=== PATIENT | male | born 1940 | race Caucasian/White ===

== ENCOUNTER 2017-06-20 08:54 | Day surgery (SDC) | payer MEDICARE, OTHER ==
[2017-06-17 14:49] VITALS: BMI 36.3
[~2017-06-20 08:54] MED LIST: ALPRAZolam 0.25 MG TAB PO PRN; ALPRAZolam 0.5 MG TAB PO PRN; ASPIRIN 325 MG TAB PO STA; ATORVASTATIN 80 MG TAB PO STA; NITROGLYCERIN SL TABS 0.4 MG TAB SUBLINGUAL PRN; SODIUM CHLORIDE 0.9% 1,000 ML in EMPTY BAG 1 BAG IV ONE
[2017-06-20 09:40] VITALS: PULSE 77; TEMP 98.1
[2017-06-20] MEDS ORDERED: MIDAZOLAM 2 MG/2 ML VIAL IVP ONE (10:15)
[2017-06-20] MEDS ORDERED: LIDOCAINE 2% INJ 20 MG/ML SQ ONE (10:25)
[2017-06-20] MEDS ORDERED: IODIXANOL 320 MG/ML 100 ML INTRAARTER ONE (11:15)
--- NOTE | 2017-06-20 14:21 | CC ---
DATE OF SERVICE: 06/20/17 PERFORMING PHYSICIAN: Kirk Gamboa M.D., service trainer. PROCEDURE PERFORMED: 1. Selective left and right coronary angiogram. 2. Left internal mammary artery angiogram. 3. SVG angiogram times two. 4. Selective right common femoral artery angiogram. INDICATIONS: This is a pleasant 76 year old gentleman who was experiencing exertional dyspnea. He is known to have coronary artery bypass grafting times three with MARTINEZ to LAD, SVG to OM and SVG to RCA. He underwent stress test which showed ischemia in the septal area. He was brought today to undergo heart catheterization. APPROACH: Right common femoral artery. COMPLICATIONS: None. LEVEL OF SEDATION: Moderate. SEDATION LENGTH: 48 minutes. PROCEDURE DESCRIPTION: After obtaining informed consent, the patient was brought to the cardiac refuse laborer. The right common femoral artery was cannulated using micropuncture technique. The micropuncture wire passed easily. Then, I placed a 6 Telugu sheath in the right radial artery. I did place after that 23 cm sheath to bypass the tortuosity in the aorta iliac area. After that, I did selective right and left coronary angiogram using JR4 and JL4 catheters. I did after that SVG angiogram times two with SVG to the RCA was performed using Darwin Mondragon catheter and SVG to OM was performed using JR4 catheter. The left internal mammary artery angiogram was performed using an IM catheter. The procedure was completed without any complications. SELECTIVE CORONARY ANGIOGRAM: 1. The left main is angiographically normal. 2. The left circumflex is 100% occluded in the proximal portion. 3. The left anterior descending artery: The proximal LAD appeared to have a tight lesion in the range of 80%. The mid LAD seems to be subtotally occluded with competitive flow from the MARTINEZ. 4. The RCA is 100% occluded in the mid portion. CORONARY BYPASS ANGIOGRAM: 1. The MARTINEZ to LAD is patent. 2. SVG to left circumflex is patent. 3. SVG to RCA is patent as well. CONCLUSIONS: 1. Severe triple vessel coronary artery disease. 2. Patent MARTINEZ to LAD. 3. Patent SVG to left circumflex. 4. Patent SVG to RCA. POSTPROCEDURE MANAGEMENT: 1. Maximize medical treatment. 2. Follow up with the patient. AMANDA
[2017-06-20 18:02] VITALS: BP 115/70; RESP 20
[2017-06-23] MEDS ORDERED: SODIUM CHLORIDE 0.9% 1,000 ML IV SCH (11:30)
== END 2017-06-20 17:33 | disposition home or self-care (01) ==
LOC: CATHCVL 08:54
PROVIDERS: ATTEND Internal Medicine Interventional Cardiology
DX: I25.110 Atherosclerotic heart disease of native coronary artery with unstable angina pectoris (principal); I25.82 Chronic total occlusion of coronary artery; R94.39 Abnormal result of other cardiovascular function study; I10 Essential (primary) hypertension; E78.5 Hyperlipidemia, unspecified; Z95.1 Presence of aortocoronary bypass graft; J44.9 Chronic obstructive pulmonary disease, unspecified; Z79.02 Long term (current) use of antithrombotics/antiplatelets; Z79.82 Long term (current) use of aspirin; Z79.891 Long term (current) use of opiate analgesic; Z79.899 Other long term (current) drug therapy; Z79.1 Long term (current) use of non-steroidal anti-inflammatories (NSAID); Z87.891 Personal history of nicotine dependence
CPT/HCPCS: 93455; 99152; 99153; C1760; C1769 ×4; C1894 ×3; J2001; J2250; Q9967

== ENCOUNTER 2019-09-22 10:47 | Day surgery (SDC) | payer MEDICARE, OTHER ==
[2019-09-21 08:47] VITALS: BMI 37.2
[~2019-09-22 10:47] MED LIST changes: -ALPRAZolam 0.5 MG TAB PO PRN; +ASPIRIN 325 MG TAB PO ONE; -ASPIRIN 325 MG TAB PO STA; -ATORVASTATIN 80 MG TAB PO STA; -NITROGLYCERIN SL TABS 0.4 MG TAB SUBLINGUAL PRN
[2019-09-22] MEDS ORDERED: ASPIRIN 81 MG ONE (11:31)
[2019-09-22] MEDS ORDERED: SODIUM CHLORIDE 0.9% 1,000 ML IV ONE (11:42)
[2019-09-22 11:52] LABS: Basophils # (A) 0.2 k/uL (0-0.2); Basophils % (A) 3 %; Eosinophils # (A) 0.3 k/uL (0-0.7); Eosinophils % (A) 3 %; HCT 46.9 % (39.0-53.0); HGB 15.8 gm/dL (13.0-17.5); Lymphocytes # (A) 1.2 k/uL (1.0-4.8); Lymphocytes % (A) 15 %; MCH 32.5 pg (25.0-35.0); MCHC 33.8 g/dL (31.0-37.0); MCV 96.1 fL (80.0-100.0); Mean Platelet Volume 7.5; Monocytes # (A) 0.5 k/uL (0-1.0); Monocytes % (A) 6 %; Neutrophils # (A) 5.5 k/uL (1.3-7.7); Neutrophils % (A) 70 %; Platelet Count 156 k/uL (150-450); RBC 4.87 m/uL (4.30-5.90); RDW 14.3 % (11.5-15.5); WBC 7.8 k/uL (3.8-10.6)
[2019-09-22 12:00] LABS: Calcium 9.3 mg/dL (8.4-10.2)
[2019-09-22] MEDS ORDERED: LIDOCAINE 1% INJ 10MG/ML (20 ML MDV) SQ ONE (15:49)
[2019-09-22] MEDS ORDERED: fentaNYL (PF) 50 MCG/ML 2 ML AMP IV ONE (15:50)
[2019-09-22] MEDS ORDERED: IOPAMIDOL-250 100ML BTL INTRAARTER ONE ×2 (16:38→16:39)
[2019-09-22] MEDS ORDERED: SODIUM CHLORIDE 0.9% 1,000 ML IV SCH (17:00)
--- NOTE | 2019-09-22 17:06 | P.PCN ---
Date of Procedure: 09/22/19 Operative Findings: INTRAVASCULAR ULTRASOUND OF THE BILATERAL ILIAC VEINS Performing physician: Kirk Gamboa M.D. Procedure performed: Intravascular ultrasound of the inferior vena cava Intravascular ultrasound of bilateral common iliac and external iliac veins Intravascular ultrasound of bilateral common femoral veins Indication: This is a pleasant 79-year-old gentleman with history of coronary artery disease and prior coronary artery bypass grafting as well as peripheral arterial disease and prior peripheral intervention as well as hypertension and dyslipidemia who was diagnosed with critical limb ischemia with nonhealing ulcers involving both shins. Because of the venous ultrasound was advised. Approach: Right and left common femoral vein Complication: None Level of sedation: Moderate with a sedation length of 30 minutes Procedure description: After obtaining an informed consent the patient was brought to the cardiac culture media laboratory assistant. The right and left common femoral vein was cannulated using micropuncture technique under ultrasound guidance, the micropuncture wire passed easily then I did place a 6-Hungarian 11 cm sheath in both common femoral veins. Subsequently I did intravascular ultrasound of both sides where I did pulled the sheath out and I advanced the catheter over 035 J-wire. Subsequently I did manual pullback. That was performed on each side separately. 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
--- NOTE | 2019-09-22 17:14 | P.PCN ---
Date of Procedure: 09/22/19 Operative Findings: AN ABDOMINAL AORTOGRAM AND BILATERAL LOWER EXTREMITIES RUNOFF PERFORMING PHYSICIAN: Kirk Gamboa MD PROCEDURE PERFORMED: 1. An abdominal aortogram 2. Bilateral lower extremities runoff INDICATION: This is a 79-year-old gentleman with history of CAD, PAD and prior angioplasty, hypertension, and dyslipidemia, was diagnosed recently with CLIA of bilateral lower extremities. He underwent an arterial duplex study which revealed severe fem-pop disease bilaterally. COMPLICATION: None LEVEL OF SEDATION: Moderate was sedation length of 10 minutes APPROACH: Right common femoral artery PROCEDURE DESCRIPTION: After obtaining informed consent and explaining the procedure benefits, risks, and complications, the patient was brought to the cardiac factory laborer. The right groin was prepped and draped in sterile fashion. The right common femoral artery was cannulated using micropuncture technique, under ultrasound guidance. A micropuncture wire was advanced, and the micropuncture sheath was advanced over the wire, then the micropuncture sheath was exchanged over an 0.35 wire into a 5-Swedish sheath dilator assembly then the wire and dilator were removed and sheath was flushed. We did an abdominal aortogram and bilateral lower extremities runoff using 5- Swedish pigtail catheter using a power injection. The catheter was initially placed at the level of the renal arteries, and it was pulled into above the bifurcation of the aorta into right and left common iliac arteries. The procedure was completed and there was no complications. SELECTIVE PERIPHERAL ANGIOGRAM: The abdominal aorta: Appears to have mild disease only. The common iliac arteries: Appeared to be angiographically normal. The external iliac arteries: Appears to be angiographically normal. The internal iliac arteries: Are angiographically normal. The common femoral arteries: Are angiographically normal. Superficial femoral arteries: Are calcified. The right SFA appears to be stented with severe in-stent restenosis. The left SFA has severe disease also in the midportion Popliteal arteries: Are angiographically normal Below the knees: Three-vessel runoff below the knee bilaterally CONCLUSION: Severe bilateral SFA disease POSTPROCEDURE MANAGEMENT: Continue the current medical regimen TOUCH UP EDGER of the right and left SFA Follow-up with the patient
[2019-09-22 18:15] VITALS: TEMP 98.2
[2019-09-22 19:21] VITALS: RESP 18
[2019-09-22 20:40] VITALS: BP 142/66; PULSE 80
--- NOTE | 2019-09-23 16:00 | IR ---
EXAMINATION TYPE: IR angio abdominal w runoff DATE OF EXAM: 09/22/2019 COMPARISON: NONE HISTORY: Fluoroscopy time. Fluoroscopy was provided to the referring clinician.
== END 2019-09-22 22:45 | disposition home or self-care (01) ==
LOC: CATHCVL 10:47 → 1SOBS 17:29 → CATHCVL 22:45
PROVIDERS: ATTEND Internal Medicine Interventional Cardiology
DX: I70.238 Atherosclerosis of native arteries of right leg with ulceration of other part of lower leg (principal); I70.248 Atherosclerosis of native arteries of left leg with ulceration of other part of lower leg; L97.829 Non-pressure chronic ulcer of other part of left lower leg with unspecified severity; L97.819 Non-pressure chronic ulcer of other part of right lower leg with unspecified severity; I70.213 Atherosclerosis of native arteries of extremities with intermittent claudication, bilateral legs; T82.856A Stenosis of peripheral vascular stent, initial encounter; I77.9 Disorder of arteries and arterioles, unspecified; I48.91 Unspecified atrial fibrillation; I25.10 Atherosclerotic heart disease of native coronary artery without angina pectoris; I25.5 Ischemic cardiomyopathy; E66.3 Overweight; Z68.41 Body mass index [BMI] 40.0-44.9, adult; I11.0 Hypertensive heart disease with heart failure; I50.32 Chronic diastolic (congestive) heart failure; R60.0 Localized edema; E78.5 Hyperlipidemia, unspecified; Z72.0 Tobacco use; Z95.1 Presence of aortocoronary bypass graft; Z79.82 Long term (current) use of aspirin; Z79.01 Long term (current) use of anticoagulants; Z79.1 Long term (current) use of non-steroidal anti-inflammatories (NSAID); Z79.891 Long term (current) use of opiate analgesic; Z79.899 Other long term (current) drug therapy; Z98.61 Coronary angioplasty status
CPT/HCPCS: 75716; 36200; 76937; 37252; 37253; 80048; 85025; C1769 ×5; C1894 ×2; C1753; J2001; J3010; Q9966; 75625; 92978

== ENCOUNTER 2019-11-10 07:45 | Day surgery (SDC) | payer MEDICARE, OTHER ==
[2019-11-09 09:15] VITALS: BMI 37.2
[~2019-11-10 07:45] MED LIST changes: -ASPIRIN 325 MG TAB PO ONE; +ASPIRIN 325 MG TAB PO STA
[2019-11-10 08:26] LABS: Basophils # (A) 0.1 k/uL (0-0.2); Basophils % (A) 1 %; Eosinophils # (A) 0.2 k/uL (0-0.7); Eosinophils % (A) 2 %; HCT 47.6 % (39.0-53.0); HGB 15.5 gm/dL (13.0-17.5); Lymphocytes # (A) 1.2 k/uL (1.0-4.8); Lymphocytes % (A) 17 %; MCH 31.8 pg (25.0-35.0); MCHC 32.7 g/dL (31.0-37.0); MCV 97.2 fL (80.0-100.0); Mean Platelet Volume 8.5; Monocytes # (A) 0.5 k/uL (0-1.0); Monocytes % (A) 6 %; Neutrophils # (A) 5.3 k/uL (1.3-7.7); Neutrophils % (A) 71 %; Platelet Count 143 k/uL (150-450); RBC 4.89 m/uL (4.30-5.90); RDW 14.1 % (11.5-15.5); WBC 7.5 k/uL (3.8-10.6)
[2019-11-10 08:39] LABS: Calcium 9.8 mg/dL (8.4-10.2); Potassium 4.7 mmol/L (3.5-5.1)
[2019-11-10] MEDS: MIDAZOLAM 2 MG/2 ML VIAL IVP ONE ×2 (08:55→09:04)
[2019-11-10] MEDS ORDERED: LIDOCAINE 1% INJ 10MG/ML (20 ML MDV) SQ ONE (09:00)
[2019-11-10] MEDS ORDERED: HEPARIN SODIUM 1,000 UN/ML (10ML VL) IV ONE (09:06)
[2019-11-10] MEDS ORDERED: IOPAMIDOL-250 100ML BTL IV ONE (09:44)
[2019-11-10] MEDS ORDERED: CLOPIDOGREL 75 MG TAB PO ONE (09:44)
[2019-11-10] MEDS ORDERED: HYDROcodone/APAP 10-325MG 1 EACH TAB PO PRN (09:48)
[2019-11-10] MEDS ORDERED: SODIUM CHLORIDE 0.9% 250 ML IV ONE (09:55)
[2019-11-10] MEDS ORDERED: SODIUM CHLORIDE 0.9% 1,000 ML IV SCH (10:00)
--- NOTE | 2019-11-10 10:10 | IR ---
EXAMINATION TYPE: IR correctional officer captain venous DATE OF EXAM: 11/10/2019 CLINICAL HISTORY: Iliac arterial obstruction. TECHNIQUE: Fluoroscopy. COMPARISON: None. FINDINGS: Fluoroscopic guidance was provided during iliac angiogram with angioplasty and stent place ment procedure performed by Dr. Gamboa. A total of 10.8 minute of fluoroscopic time was utilized durin g the procedure and multiple cine images are acquired. Images acquired show access via right groin with subsequent balloon dilatation and stent placement.. Please refer to procedure note for further details if necessary. IMPRESSION: As Above.
--- NOTE | 2019-11-10 10:21 | AN ---
ANGIOGRAPHY REPORT DATE OF SERVICE: 11/10/2019 PERFORMING PHYSICIAN: Kirk Gamboa MD. PROCEDURE PERFORMED: 1. Intravascular ultrasound (IVUS) of the inferior vena cava, common iliac vein, and external iliac vein. 2. Successful stenting of the right common iliac vein and external iliac vein using 18 x 19 mm wall stent with an excellent results. 3. Right common and external iliac venogram. INDICATION: This is a pleasant 79-year-old gentleman who was struggling with critical limb ischemia and nonhealing ulcers involving the right okay struggling with critical limb ischemia with nonhealing ulcers involving the right thomson. He underwent intravascular ultrasound IVUS of the right common FA and right external iliac vein and that revealed severe stenosis with scar tissues. He was brought today to undergo stenting of both the right external and right common iliac vein. APPROACH: Right common femoral vein. COMPLICATION: None. LEVEL OF SEDATION: Moderate with sedation length of 45 minutes. After obtaining informed consent, the patient was brought to the cardiac tender labor. The right common femoral vein was cannulated using micropuncture technique under ultrasound guidance, the micropuncture wire passed easily then initially I placed 8-Panamanian sheath over 0.035 glide Advantage wire. Subsequently I upgraded that into a 10-Panamanian sheath over 0.035 glide Advantage wire. The sheath was flushed at that point. I did start anticoagulation with heparin and the patient was given 10,0000 units of heparin IV. Subsequently, I did advance a 0.035 glide Advantage wire to the superior vena cava under fluoroscopy guidance. I did intravascular ultrasound IVUS of the of the IVC, common iliac vein, and common and external iliac vein. That revealed an area of stenosis of 657% of the right common iliac vein and 62% of the right external iliac vein. At that point, I decided to pursue using 18 x 19 mm wall stent. I did predilatation using 14 mm balloon before I deployed 18 x 19 mm wall stent where the stent was positioned under fluoroscopy guidance and deployed under fluoroscopy guidance. I post-dilated the stent using 14 using 16 mm balloon. I did IVUS again, which showed excellent results with residual stenosis of 34% at the right common iliac vein and 10% at the right external iliac vein. I did after that do right common and external iliac vein angiogram which revealed great results. The procedure was completed without any complication. POSTPROCEDURE MANAGEMENT: 1. Dual anti-platelet therapy. 2. Risk factors modifications. 3. Follow up with the patient. MMBILLL / IJN: [id number] /
[2019-11-10] MEDS: FLUTICASONE 110 MCG INHALER INHALATION SCH (20:43)
[2019-11-10] MEDS: IPRATROPIUM 0.5 MG/2.5 ML NEBU INHALATION SCH (20:43)
[2019-11-10] MEDS: METOPROLOL TARTRATE 25 MG TAB PO SCH (20:48)
[2019-11-10] MEDS: ASPIRIN 81 MG PO SCH (20:48)
[2019-11-11 07:02] LABS: Basophils % (A) 0 %; Eosinophils # (A) 0.2 k/uL (0-0.7); Eosinophils % (A) 3 %; HCT 45.2 % (39.0-53.0); HGB 14.5 gm/dL (13.0-17.5); Lymphocytes # (A) 0.9 k/uL (1.0-4.8); Lymphocytes % (A) 15 %; MCH 31.5 pg (25.0-35.0); MCHC 32.1 g/dL (31.0-37.0); MCV 98.2 fL (80.0-100.0); Mean Platelet Volume 8.4; Monocytes # (A) 0.4 k/uL (0-1.0); Monocytes % (A) 7 %; Neutrophils # (A) 4.1 k/uL (1.3-7.7); Neutrophils % (A) 72 %; Platelet Count 118 k/uL (150-450); RDW 14.1 % (11.5-15.5); WBC 5.7 k/uL (3.8-10.6)
[2019-11-11 07:12] LABS: Calcium 9.3 mg/dL (8.4-10.2); Potassium 4.8 mmol/L (3.5-5.1)
[2019-11-11 08:42] VITALS: BP 117/68; PULSE 79; RESP 18; TEMP 98.9
[2019-11-11] MEDS: IPRATROPIUM 0.5 MG/2.5 ML NEBU INHALATION SCH ×2 (08:46→08:49)
[2019-11-11] MEDS: FLUTICASONE 110 MCG INHALER INHALATION SCH (08:46)
[2019-11-11] MEDS ORDERED: LORATADINE 10 MG TAB PO SCH (09:00)
[2019-11-11] MEDS ORDERED: ALLOPURINOL 300 MG TAB PO SCH (09:00)
[2019-11-11] MEDS ORDERED: MONTELUKAST 10 MG TAB PO SCH (09:00)
[2019-11-11] MEDS ORDERED: CLOPIDOGREL 75 MG TAB PO SCH (09:00)
[2019-11-11] MEDS ORDERED: FUROSEMIDE 10 MG TAB PO SCH (09:00)
[2019-11-11] MEDS ORDERED: ATORVASTATIN 40 MG TAB PO SCH (09:00)
[2019-11-11] MEDS ORDERED: TAMSULOSIN 0.4 MG CAP.ER.24H PO SCH (09:00)
[2019-11-11] MEDS ORDERED: NAPROXEN 250 MG TAB PO SCH (09:00)
[2019-11-11] MEDS ORDERED: EZETIMIBE 10 MG TAB PO SCH (09:00)
--- NOTE | 2019-11-11 09:21 | DS ---
DISCHARGE SUMMARY ADMISSION DATE: 11/10/2019 DISCHARGE DATE: 11/11/2019 BRIEF HISTORY: This is a very pleasant 79-year-old gentleman who was diagnosed with venous ulcers involving both shins. He was diagnosed after that with severe stenosis involving the right common and external iliac veins. He underwent yesterday successful stenting of both the right common and right external iliac vein with adjunctive use of intravascular ultrasound with an excellent angiographic result by the end and without any complication. The patient is going to be discharged home later on today and I will follow up with him at [place]. KIMBERLY / IJN: [id number] /
[2019-11-11] MEDS: ASPIRIN 81 MG PO SCH (09:53)
[2019-11-11] MEDS: METOPROLOL TARTRATE 25 MG TAB PO SCH (09:53)
== END 2019-11-11 10:58 | disposition home or self-care (01) ==
LOC: CATHCVL 07:45 → 3SCARD 15:37 → CATHCVL 11-11 10:58
PROVIDERS: ATTEND Internal Medicine Interventional Cardiology
DX: I87.1 Compression of vein (principal); I70.238 Atherosclerosis of native arteries of right leg with ulceration of other part of lower leg; I70.248 Atherosclerosis of native arteries of left leg with ulceration of other part of lower leg; L97.829 Non-pressure chronic ulcer of other part of left lower leg with unspecified severity; L97.819 Non-pressure chronic ulcer of other part of right lower leg with unspecified severity; I25.10 Atherosclerotic heart disease of native coronary artery without angina pectoris; I25.5 Ischemic cardiomyopathy; I11.0 Hypertensive heart disease with heart failure; I50.32 Chronic diastolic (congestive) heart failure; E78.5 Hyperlipidemia, unspecified; Z95.1 Presence of aortocoronary bypass graft; Z72.0 Tobacco use; Z79.51 Long term (current) use of inhaled steroids; Z79.82 Long term (current) use of aspirin; Z79.899 Other long term (current) drug therapy; Z79.1 Long term (current) use of non-steroidal anti-inflammatories (NSAID); E66.3 Overweight; Z68.41 Body mass index [BMI] 40.0-44.9, adult
CPT/HCPCS: 94640 ×2; 37238; 85347; 37252; 80048 ×2; 85025 ×2; C1894 ×2; C1769 ×4; C1725 ×2; C1753; C1876; J2250; J2001; J1644; Q9966

== ENCOUNTER 2019-12-07 19:29 | Inpatient (IN) | payer MEDICARE, OTHER ==
[2019-12-07] MEDS: METOPROLOL TARTRATE 25 MG TAB PO SCH (23:36)
[2019-12-07] MEDS: HYDROcodone/APAP 10-325MG 1 EACH TAB PO PRN (23:37)
[2019-12-08] MEDS: IPRATROPIUM-ALBUTEROL 3 ML NEB INHALATION SCH ×7 (00:10→23:05)
[2019-12-08 00:19] LABS: HCT 46.5 % (39.0-53.0); HGB 15.2 gm/dL (13.0-17.5); MCH 31.9 pg (25.0-35.0); MCHC 32.6 g/dL (31.0-37.0); MCV 97.9 fL (80.0-100.0); Platelet Count 122 k/uL (150-450); RBC 4.75 m/uL (4.30-5.90); RDW 14.4 % (11.5-15.5)
[2019-12-08 00:29] LABS: Calcium 9.2 mg/dL (8.4-10.2); Potassium 4.7 mmol/L (3.5-5.1)
[2019-12-08] MEDS: HYDROcodone/APAP 10-325MG 1 EACH TAB PO PRN ×2 (06:01→20:22)
--- NOTE | 2019-12-08 08:10 | XR ---
EXAMINATION TYPE: XR chest 2V DATE OF EXAM: 12/08/2019 COMPARISON: None INDICATION: Pneumonia TECHNIQUE: Frontal and lateral views of the chest are obtained. FINDINGS: The heart size is normal. The pulmonary vasculature is normal. There is opacification at the right base. A moderate effusion or elevation of the right diaphragm cou ld be considered. Mild infiltrate may be at the retrocardiac region. Note is made of advanced degenerative changes of the right shoulder moderately advanced degenerative change left shoulder. Sternotomy wires are in the midline. IMPRESSION: 1. Correlate for right pleural effusion. 2. Mild left lower lobe infiltrate may be present.
[2019-12-08] MEDS: TAMSULOSIN 0.4 MG CAP.ER.24H PO SCH (08:24)
--- NOTE | 2019-12-08 08:24 | P.CRDCN ---
History of Present Illness Consult date: 12/08/19 Requesting physician: Aleisha Hannon Consult reason: shortness of breath Chief complaint: Weakness, body aches, fever, shortness of breath History of present illness: This is a 79-year-old gentleman who follows with Dr. Quintana in the office. He has a known history of coronary artery disease with prior bypass surgery, mild cardiomyopathy with an ejection fraction around 45%, obesity, hypertension, hyperlipidemia. Patient has chronic lower extremity edema with nonhealing wounds. Patient was in the hospital on 11/10/2019, he underwent RADHA of the inferior vena cava, common iliac, and external iliac vein, subsequently underwent successful stenting of the right common iliac vein and external iliac vein. The patient presented to [facility] with symptoms of progressive weakness, body aches, fever, productive cough of dark sputum, and worsening shortness of breath. Influenza A and B were negative. BNP 172. Sodium 135, potassium 3.8, BUN 32, creatinine 1.7. Troponin 0.03. White blood cell count 30.3, hemoglobin 15.4, platelet count 114. Blood pressure on arrival there 102/58, oxygen saturations 96%, initial presentation the oxygen saturation was 79%, heart rate 110 to 1:30, temperature 37. Patient does also have a history of hypothyroidism, chronic kidney disease, COPD. While at [facility], patient was noted to be in moderate respiratory distress, he was quite Tachycardic on presentation here. His initial EKG showed a wide complex tachyc ardia, could be a sinus tachycardia or atrial flutter. He was mildly hypotensive at that time. He was started on IV Cardizem. Patient's temperature while there was noted to be 101, it was felt that the patient likely had a pneumonia. He was transferred here to [facility] for further evaluation and treatment. Patient's most recent cardiac catheterization was performed in June 2017 which revealed severe triple-vessel coronary artery disease with patent MARTINEZ to the LAD, patent saphenous vein graft to the circumflex, patent saphenous vein graft to the RCA and maximal medical therapy was advised. Chest x-ray was performed on arrival here, results are yet pending. White blood cell count 26, hemoglobin 15.2, platelet count 122. Sodium 135, potassium 4.7, BUN 39, creatinine 1.7, BNP level 2120. At the time of my examination this morning, patient states that he feels significantly improved from his initial presentation to [facility], he is much stronger. He does continue to have a productive cough and still feel somewhat short of breath. Patient is currently on IV and oral antibiotics as well as aspirin 81 mg daily, Lipitor 40 mg daily, metoprolol 25 mg one tablet by mouth twice a day. Blood pressure this morning 140/60 with a heart rate of 108, 91% on 6 L of oxygen. Past Medical History Past Medical History: Coronary Artery Disease (CAD), Cancer, COPD, Hyperlipidemia, Hypertension, Musculoskeletal Disorder, Osteoarthritis (OA) Additional Past Medical History / Comment(s): Hx. of Gout. See Dr. Gamboa's H&P. Skin cancer. Hx. of Hydrocele., chronic back pain with calcium deposits, bypass in april 2012 History of Any Multi-Drug Resistant Organisms: None Reported Past Surgical History: Cholecystectomy, Coronary Bypass/CABG, Heart Catheter ization, Joint Replacement, Orthopedic Surgery Additional Past Surgical History / Comment(s): R knee replacement, shoulder surgery, spinal cyst removed, pins in L middle finger.,COLONOSCOPY, RT CATARACT REMOVED, heart valve replacement Past Anesthesia/Blood Transfusion Reactions: No Reported Reaction Past Psychological History: No Psychological Hx Reported Smoking Status: Former smoker Past Alcohol Use History: None Reported Additional Past Alcohol Use History / Comment(s): Quit smoking in 1997. 3ppd smoker Past Drug Use History: None Reported - Past Family History Mother Family Medical History: Cancer, Deep Vein Thrombosis (DVT) Additional Family Medical History / Comment(s): Skin cancer. Medications and Allergies Home Medications Medication Instructions Recorded Confirmed Type Allopurinol [Zyloprim] 300 mg PO HS 06/17/17 12/07/19 History Aspirin 162 mg PO DAILY 06/17/17 12/07/19 History Cetirizine HCl [Zyrtec] 10 mg PO DAILY 06/17/17 12/07/19 History HYDROcodone/APAP 10-325MG [Leedey 1 tab PO QID PRN 06/17/17 12/07/19 History 10-325] Naproxen [Naprosyn] 500 mg PO DAILY 06/17/17 12/07/19 History Tamsulosin [Flomax] 0.4 mg PO DAILY 06/17/17 12/07/19 History Tiotropium [place]min[place] [Spiriva] 1 cap INHALATION DAILY 06/17/17 12/07/19 History Atorvastatin [Lipitor] 40 mg PO DAILY 09/21/19 12/07/19 History Montelukast [Singulair] 10 mg PO HS 09/21/19 12/07/19 History Beclomethasone Dip 80 Mcg/Puff 1 puff INHALATION BID 11/09/19 12/07/19 History [Qvar 80 mcg] Ezetimibe [Zetia] 10 mg PO DAILY 11/09/19 12/07/19 History Albuterol Sulfate [Proair Hfa] 2 puff INHALATION RT-Q4H PRN 12/07/19 12/07/19 History Artificial Tears-Hypromellose 1 drop BOTH EYES DAILY PRN 12/07/19 12/07/19 History [Artificial Tear Drops] Metoprolol Tartrate [Lopressor] 25 mg PO BID 12/07/19 12/07/19 History Potassium Chloride ER [K-Dur 10] 10 meq PO DAILY 12/07/19 12/07/19 History Torsemide [Demadex] 20 mg PO DAILY 12/07/19 12/07/19 History Allergies Allergy/AdvReac Type Severity Reaction Status Date / Time No Known Allergies Allergy Verified 12/07/19 22:58 Physical Exam Vitals: Vital Signs Temp Pulse Pulse Resp BP Pulse Ox 12/08/19 04:51 112 H 12/08/19 04:24 112 H 12/08/19 04:00 97.5 F L 107 H 20 141/63 91 L 12/08/19 01:20 114 H 12/08/19 00:11 117 H 92 L 12/07/19 23:00 98.3 F 109 H 18 146/75 93 L Intake and Output 12/07/19 12/08/19 12/08/19 22:59 06:59 14:59 Output Total 150 Balance -150 Output: Urine 150 Other: Voiding Method Urinal Weight 120.45 kg 104 kg PHYSICAL EXAMINATION: GENERAL: 79-year-old gentleman in no acute distress at the time of my examination HEENT: Head is atraumatic, normocephalic. Pupils equal, round. Sclera anicteric. Conjunctiva are clear. Mucous membranes of the mouth are moist. Neck is supple. There is elevated jugular venous pressure. No carotid bruit is heard. HEART EXAMINATION: Heart S1 and S2, irregularly irregular, systolic murmur is heard CHEST EXAMINATION: Lungs reveal decreased air exchange throughout with some scattered wheezing. Diminished bilaterally ABDOMEN: Soft, obese, nontender. Bowel sounds are heard. No organomegaly noted. EXTREMITIES:[ 1+ peripheral pulses with 1-2+ evidence of peripheral edema and evidence of chronic venous stasis. NEUROLOGIC patient is awake, alert and oriented 3 . Results 12/07/19 23:51 12/07/19 23:51 CBC 12/07/19 Range/Units 23:51 WBC 26.0 H (3.8-10.6) k/uL RBC 4.75 (4.30-5.90) m/uL Hgb 15.2 (13.0-17.5) gm/dL Hct 46.5 (39.0-53.0) % Plt Count 122 L (150-450) k/uL Comprehensive Metabolic Panel 12/07/19 Range/Units 23:51 Sodium 135 L (137-145) mmol/L Potassium 4.7 (3.5-5.1) mmol/L Chloride 97 L (98-107) mmol/L Carbon Dioxide 29 (22-30) mmol/L BUN 39 H (9-20) mg/dL Creatinine 1.78 H (0.66-1.25) mg/dL Glucose 140 H (74-99) mg/dL Calcium 9.2 (8.4-10.2) mg/dL Current Medications Generic Name Dose Route Start Last Admin Trade Name Freq PRN Reason Stop Dose Admin Hydrocodone Bitart/Acetaminophen 1 each 12/07/19 23:05 12/08/19 06:01 Leedey 10 PO 1 each Q6H PRN Administration Pain Albuterol/Ipratropium 3 ml 12/08/19 00:00 12/08/19 04:24 Duoneb 0.5 Mg-3 Mg/3 Ml Soln INHALATION 3 ml RT-Q4H ARNOL Administration Aspirin 81 mg 12/08/19 09:00 Aspirin PO DAILY ARNOL Atorvastatin Calcium 40 mg 12/08/19 21:00 Lipitor PO HS ARNOL Azithromycin 500 mg 12/08/19 09:00 Zithromax PO DAILY [facility] Ceftriaxone Sodium 2 gm/ 50 mls @ 100 mls/hr 12/08/19 09:00 Sodium Chloride IVPB Q24HR ARNOL Metoprolol Tartrate 25 mg 12/07/19 23:15 12/07/19 23:36 Lopressor PO 25 mg BID ARNOL Administration Tamsulosin HCl 0.4 mg 12/08/19 08:30 Flomax PO PC-BRKFST ARNOL Intake and Output 12/07/19 12/08/19 12/08/19 22:59 06:59 14:59 Output Total 150 Balance -150 Output: Urine 150 Other: Voiding Method Urinal Weight 120.45 kg 104 kg 12/07/19 23:51 12/07/19 23:51 EKG Interpretations (text) There is been no EKG performed here, EKG performed at [facility] shows a wide-complex tachycardia, possible atrial flutter/atrial fibrillation Assessment and Plan Plan: Assessment and plan #1 symptoms of weakness and body aches with associated fever, currently on antibiotics for pneumonia. #2 wide complex tachycardia, likely sinus tachycardia versus atrial flutter #3 known history of coronary artery disease with prior bypass surgery, most recent cardiac catheterization performed in 2017, medical therapy advised at that time #4 mild ischemic cardiomyopathy with prior documented ejection fraction of 45% #5 obesity #6 hypertension #7 COPD #8 hyperlipidemia #9 recent iliac vein stenting Plan We will continue baby aspirin daily, Lipitor, increase dose of metoprolol to 50 mg twice a day. Obtain echocardiogram with Doppler study. Further recommendations to follow. DNP note has been reviewed, I agree with a documented findings and plan of care. Patient was seen and examined.
[2019-12-08] MEDS: AZITHROMYCIN 500 MG TAB PO SCH (08:25)
[2019-12-08] MEDS: ASPIRIN 81 MG PO SCH (08:25)
[2019-12-08] MEDS: METOPROLOL TARTRATE 25 MG TAB PO SCH (08:25)
[2019-12-08] MEDS: METOPROLOL TARTRATE 50 MG TAB PO SCH ×2 (09:28→19:44)
[2019-12-08] MEDS ORDERED: ARTIFICIAL TEARS-HYPROMELLOSE DROPS 15 ML BTL BOTH EYES PRN (10:14)
[2019-12-08] MEDS ORDERED: HYDROcodone/APAP 10-325MG 1 EACH TAB PO PRN (10:14)
[2019-12-08] MEDS ORDERED: methylPREDNISolone SOD SUCCI 125 MG/2 ML VIAL IV STA (10:16)
[2019-12-08 11:38] LABS: HCT 45.3 % (39.0-53.0); HGB 14.2 gm/dL (13.0-17.5); MCH 31.4 pg (25.0-35.0); MCHC 31.5 g/dL (31.0-37.0); MCV 99.9 fL (80.0-100.0); Macrocytosis Slight; Mean Platelet Volume 8.9; Platelet Count 124 k/uL (150-450); RBC 4.53 m/uL (4.30-5.90); RDW 14.4 % (11.5-15.5); WBC 28.7 k/uL (3.8-10.6)
[2019-12-08 11:46] LABS: Potassium 5.1 mmol/L (3.5-5.1)
--- NOTE | 2019-12-08 14:43 | P.HPIM ---
History of Present Illness 79-year-old pleasant male came in with complaints of fever cough and brownish sputum production going on for about 3-4 days worsening shortness of breath there is no much air entry into bilateral lung benavides patient does have leukocy tosis influenza A and B is negative patient does have pneumonic infiltrate on the chest to x-ray, which is showing mid left lower lobe infiltrate with some right-sided pleural effusion, I did review the x-ray which showed did show pleural effusion and there may be infiltrate in the right lower lobe as well. Patient is also being treated for COPD and was diagnosed with us sleep apnea recently and patient is on CPAP machine. Patient is not wheezing but there is no much air movement and bilateral lung benavides patient is comparing of generalized body aches Review of Systems REVIEW OF SYSTEMS: CONSTITUTIONAL: Patient is severely lethargic barely able to answer my questions HEENT: No recent visual problems or hearing problems. Denied any sore throat. CARDIOVASCULAR: No chest pain, orthopnea, PND, no palpitations, no syncope. PULMONARY: As mentioned in HPI GASTROINTESTINAL: No diarrhea, no nausea, no vomiting, no abdominal pain. NEUROLOGICAL: No headaches, no weakness, no numbness. HEMATOLOGICAL: Denies any bleeding or petechiae. GENITOURINARY: Denies any burning micturition, frequency, or urgency. MUSCULOSKELETAL/RHEUMATOLOGICAL: Denies any joint pain, swelling, or any muscle pain. ENDOCRINE: Denies any polyuria or polydipsia. The rest of the 14-point review of systems is negative. Past Medical History Past Medical History: Coronary Artery Disease (CAD), Cancer, COPD, Hyperlipidemia, Hypertension, Musculoskeletal Disorder, Osteoarthritis (OA) Additional Past Medical History / Comment(s): Hx. of Gout. See Dr. Gamboa's H&P. Skin cancer. Hx. of Hydrocele., chronic back pain with calcium deposits, bypass in april 2012 History of Any Multi-Drug Resistant Organisms: None Reported Past Surgical History: Cholecystectomy, Coronary Bypass/CABG, Heart Catheterization, Joint Replacement, Orthopedic Surgery Additional Past Surgical History / Comment(s): R knee replacement, shoulder surgery, spinal cyst removed, pins in L middle finger.,COLONOSCOPY, RT CATARACT REMOVED, heart valve replacement Past Anesthesia/Blood Transfusion Reactions: No Reported Reaction Past Psychological History: No Psychological Hx Reported Smoking Status: Former smoker Past Alcohol Use History: None Reported Additional Past Alcohol Use History / Comment(s): Quit smoking in 1997. 3ppd smoker Past Drug Use History: None Reported - Past Family History Mother Family Medical History: Cancer, Deep Vein Thrombosis (DVT) Additional Family Medical History / Comment(s): Skin cancer. Medications and Allergies Home Medications Medication Instructions Recorded Confirmed Type Allopurinol [Zyloprim] 300 mg PO HS 06/17/17 12/07/19 History Aspirin 162 mg PO DAILY 06/17/17 12/07/19 History Cetirizine HCl [Zyrtec] 10 mg PO DAILY 06/17/17 12/07/19 History HYDROcodone/APAP 10-325MG [[place] 1 tab PO QID PRN 06/17/17 12/07/19 History 10-325] Naproxen [Naprosyn] 500 mg PO DAILY 06/17/17 12/07/19 History Tamsulosin [Flomax] 0.4 mg PO DAILY 06/17/17 12/07/19 History Tiotropium [place] [Spiriva] 1 cap INHALATION DAILY 06/17/17 12/07/19 History Atorvastatin [Lipitor] 40 mg PO DAILY 09/21/19 12/07/19 History Montelukast [Singulair] 10 mg PO HS 09/21/19 12/07/19 History Beclomethasone Dip 80 Mcg/Puff 1 puff INHALATION RT-BID 11/09/19 12/08/19 History [Qvar 80 mcg] Ezetimibe [Zetia] 10 mg PO DAILY 11/09/19 12/07/19 History Albuterol Sulfate [Proair Hfa] 2 puff INHALATION RT-Q4H PRN 12/07/19 12/07/19 History Artificial Tears-Hypromellose 1 drop BOTH EYES DAILY PRN 12/07/19 12/07/19 History [Artificial Tear Drops] Metoprolol Tartrate [Lopressor] 25 mg PO BID 12/07/19 12/07/19 History Potassium Chloride ER [K-Dur 10] 10 meq PO DAILY 12/07/19 12/07/19 History Torsemide [Demadex] 20 mg PO DAILY 12/07/19 12/07/19 History Clopidogrel [Plavix] 75 mg PO DAILY 12/08/19 12/08/19 History Allergies Allergy/AdvReac Type Severity Reaction Status Date / Time No Known Allergies Allergy Verified 12/07/19 22:58 Physical Exam Vitals: Vital Signs Temp Pulse Pulse Resp BP Pulse Ox 12/08/19 11:55 120 H 12/08/19 11:45 114 H 12/08/19 11:38 104 H 20 119/58 90 L 12/08/19 08:33 118 H 12/08/19 08:21 112 H 90 L 12/08/19 08:00 98.7 F 111 H 20 114/53 92 L 12/08/19 04:51 112 H 12/08/19 04:24 112 H 12/08/19 04:00 97.5 F L 107 H 20 141/63 91 L 12/08/19 01:20 114 H 12/08/19 00:11 117 H 92 L 12/07/19 23:00 98.3 F 109 H 18 146/75 93 L Intake and Output 12/07/19 12/08/19 12/08/19 22:59 06:59 14:59 Output Total 150 Balance -150 Output: Urine 150 Other: Voiding Method Urinal Urinal Weight 120.45 kg 104 kg PHYSICAL EXAMINATION: GENERAL: The patient is alert and oriented x3, lethargic Obese HEENT: Pupils are round and equally reacting to light. EOMI. No scleral icterus. No conjunctival pallor. Normocephalic, atraumatic. No pharyngeal erythema. No thyromegaly. CARDIOVASCULAR: S1 and S2 present. No murmurs, rubs, or gallops. PULMONARY: No significant air movement in the bilateral lung benavides minimal wheezing was appreciated no crackles were appreciated ABDOMEN: Soft, nontender, nondistended, normoactive bowel sounds. No palpable organomegaly. MUSCULOSKELETAL: No joint swelling or deformity. EXTREMITIES: No cyanosis, clubbing, or pedal edema. NEUROLOGICAL: Gross neurological examination did not reveal any focal deficits. SKIN: No rashes. Results CBC & Chem 7: 12/08/19 11:19 12/08/19 11:19 Labs: Abnormal Lab Results - Last 24 Hours (Table) 12/07/19 12/07/19 12/08/19 Range/Units 23:51 23:51 11:19 WBC 26.0 H 28.7 H (3.8-10.6) k/uL Plt Count 122 L 124 L (150-450) k/uL Sodium 135 L (137-145) mmol/L Chloride 97 L (98-107) mmol/L BUN 39 H (9-20) mg/dL Creatinine 1.78 H (0.66-1.25) mg/dL Glucose 140 H (74-99) mg/dL 12/08/19 Range/Units 11:19 WBC (3.8-10.6) k/uL Plt Count (150-450) k/uL Sodium 136 L (137-145) mmol/L Chloride (98-107) mmol/L BUN 49 H (9-20) mg/dL Creatinine 2.31 H (0.66-1.25) mg/dL Glucose 174 H (74-99) mg/dL Thrombosis Risk Factor Assmnt - Choose All That Apply Each Risk Factor Represents 3 Points: Age 75 years or older Thrombosis Risk Factor Assessment Total Risk Factor Score: 3 Thrombosis Risk Factor Assessment Level: Moderate Risk Assessment and Plan Plan: -Sepsis: Secondary to right lower lobe pneumonia along with left middle lobe pneumonia with a competent of COPD with acute exacerbation. Patient is on Rocephin and azithromycin which will be continued -Acute hypoxic as well as hypercapnic respiratory failure secondary to right lower lobe pneumonia along with the possible COPD exacerbation, patient may have restrictive lung disease from his obesity and sleep apnea. Patient 6 L of Cardizem doesn't use any oxygen at home patient will be given a dose of steroid IV followed by oral steroids patient will be started on albuterol ipratropium inhalational treatments -Coronary artery disease recent cardiac catheterization which did not show any stent Cardiovascular disease -Benign prostatic hypertrophy consulted continue tamsulosin hyperlipidemia: Continue with statin -Obesity and sleep apnea continue with the CPAP at home settings -COPD with acute exacerbation -Possible atrial flutter R wide-complex sinus tachycardia: Cardiology evaluated the patient patient is being continued on metoprolol 50 twice a day -Mild ischemic cardiomyopathy EF of 45% patient will be resumed on his home dose of Lasix does not appear to be in heart failure exacerbation at this time -Acute renal failure: Probably acute sugar necrosis from sepsis will consult to nephrology recent creatinine appears to be around 1.1 DVT prophylaxis with subcutaneous heparin and GI prophylaxis with the Pepcid
--- NOTE | 2019-12-08 14:52 | P.CNPUL ---
History of Present Illness Consult date: 12/08/19 Reason for consult: dyspnea, cough, COPD, hypoxemia, obstructive sleep apnea Chief complaint: Shortness of breath History of present illness: This is a 79-year-old morbidly obese male with the prior medical history of mo rbid obesity obstructive sleep apnea and sleep disorder breathing came into the hospital transfer from [facility] due to left-sided pneumonia as well as small right pleural effusion patient has been somnolent and lethargic just CPAP machine from home and has been received instructed to start CPAP machine right away Review of the data revealed that 79-year-old pleasant male came in with complaints of fever cough and brownish sputum production going on for about 3-4 days worsening shortness of breath there is no much air entry into bilateral lung benavides patient does have leukocytosis influenza A and B is negative patient does have pneumonic infiltrate on the chest to x-ray, which is showing mid left lower lobe infiltrate with some right-sided pleural effusion, I did review the x-ray which showed did show pleural effusion and there may be infiltrate in the right lower lobe as well. Patient is also being treated for COPD and was diagnosed with us sleep apnea recently and patient is on CPAP machine. Patient is not wheezing but there is no much air movement and bilateral lung benavides patient is comparing of generalized body aches Review of Systems All systems: negative Past Medical History Past Medical History: Coronary Artery Disease (CAD), Cancer, COPD, Hyperlipidemia, Hypertension, Musculoskeletal Disorder, Osteoarthritis (OA) Additional Past Medical History / Comment(s): Hx. of Gout. See Dr. Gamboa's H&P. Skin cancer. Hx. of Hydrocele., chronic back pain with calcium deposits, bypass in april 2012 History of Any Multi-Drug Resistant Organisms: None Reported Past Surgical History: Cholecystectomy, Coronary Bypass/CABG, Heart Catheterization, Joint Replacement, Orthopedic Surgery Additional Past Surgical History / Comment(s): R knee replacement, shoulder surgery, spinal cyst removed, pins in L middle finger.,COLONOSCOPY, RT CATARACT REMOVED, heart valve replacement Past Anesthesia/Blood Transfusion Reactions: No Reported Reaction Past Psychological History: No Psychological Hx Reported Smoking Status: Former smoker Past Alcohol Use History: None Reported Additional Past Alcohol Use History / Comment(s): Quit smoking in 1997. 3ppd smoker Past Drug Use History: None Reported - Past Family History Mother Family Medical History: Cancer, Deep Vein Thrombosis (DVT) Additional Family Medical History / Comment(s): Skin cancer. Medications and Allergies Home Medications Medication Instructions Recorded Confirmed Type Allopurinol [Zyloprim] 300 mg PO HS 06/17/17 12/07/19 History Aspirin 162 mg PO DAILY 06/17/17 12/07/19 History Cetirizine HCl [Zyrtec] 10 mg PO DAILY 06/17/17 12/07/19 History HYDROcodone/APAP 10-325MG [[place] 1 tab PO QID PRN 06/17/17 12/07/19 History 10-325] Naproxen [Naprosyn] 500 mg PO DAILY 06/17/17 12/07/19 History Tamsulosin [Flomax] 0.4 mg PO DAILY 06/17/17 12/07/19 History Tiotropium [place] [Spiriva] 1 cap INHALATION DAILY 06/17/17 12/07/19 History Atorvastatin [Lipitor] 40 mg PO DAILY 09/21/19 12/07/19 History Montelukast [Singulair] 10 mg PO HS 09/21/19 12/07/19 History Beclomethasone Dip 80 Mcg/Puff 1 puff INHALATION RT-BID 11/09/19 12/08/19 History [Qvar 80 mcg] Ezetimibe [Zetia] 10 mg PO DAILY 11/09/19 12/07/19 History Albuterol Sulfate [Proair Hfa] 2 puff INHALATION RT-Q4H PRN 12/07/19 12/07/19 History Artificial Tears-Hypromellose 1 drop BOTH EYES DAILY PRN 12/07/19 12/07/19 History [Artificial Tear Drops] Metoprolol Tartrate [Lopressor] 25 mg PO BID 12/07/19 12/07/19 History Potassium Chloride ER [K-Dur 10] 10 meq PO DAILY 12/07/19 12/07/19 History Torsemide [Demadex] 20 mg PO DAILY 12/07/19 12/07/19 History Clopidogrel [Plavix] 75 mg PO DAILY 12/08/19 12/08/19 History Allergies Allergy/AdvReac Type Severity Reaction Status Date / Time No Known Allergies Allergy Verified 12/07/19 22:58 Physical Exam Vitals: Vital Signs Temp Pulse Pulse Resp BP Pulse Ox 12/08/19 11:55 120 H 01/15/20 11:45 114 H 12/08/19 11:38 104 H 20 119/58 90 L 12/08/19 08:33 118 H 12/08/19 08:21 112 H 90 L 12/08/19 08:00 98.7 F 111 H 20 114/53 92 L 12/08/19 04:51 112 H 12/08/19 04:24 112 H 12/08/19 04:00 97.5 F L 107 H 20 141/63 91 L 12/08/19 01:20 114 H 12/08/19 00:11 117 H 92 L 12/07/19 23:00 98.3 F 109 H 18 146/75 93 L Intake and Output 12/07/19 12/08/19 12/08/19 22:59 06:59 14:59 Output Total 150 Balance -150 Output: Urine 150 Other: Voiding Method Urinal Urinal Weight 120.45 kg 104 kg GENERAL: The patient is alert and oriented x3, lethargic Obese HEENT: Pupils are round and equally reacting to light. EOMI. No scleral icterus. No conjunctival pallor. Normocephalic, atraumatic. No pharyngeal erythema. No thyromegaly. CARDIOVASCULAR: S1 and S2 present. No murmurs, rubs, or gallops. PULMONARY: No significant air movement in the bilateral lung benavides minimal wheezing was appreciated no crackles were appreciated ABDOMEN: Soft, nontender, nondistended, normoactive bowel sounds. No palpable organomegaly. MUSCULOSKELETAL: No joint swelling or deformity. EXTREMITIES: No cyanosis, clubbing, or pedal edema. NEUROLOGICAL: Gross neurological examination did not reveal any focal deficits. SKIN: No rashes. Results - Laboratory Findings CBC and BMP: 12/08/19 11:19 12/08/19 11:19 Abnormal lab findings: Abnormal Labs 12/07/19 12/07/19 12/08/19 23:51 23:51 11:19 WBC 26.0 H 28.7 H Plt Count 122 L 124 L Sodium 135 L Chloride 97 L BUN 39 H Creatinine 1.78 H Glucose 140 H 12/08/19 11:19 WBC Plt Count Sodium 136 L Chloride BUN 49 H Creatinine 2.31 H Glucose 174 H - Diagnostic Findings Chest x-ray: report reviewed, image reviewed (Chest x-ray reviewed finding as dictated above) Assessment and Plan Assessment: Left lower lobe pneumonia End-stage COPD Morbid obesity obstructive sleep apnea Altered mental status and lethargy due to hypercapnia and obstructive sleep apnea Sepsis Plan: Continue supplemental oxygen Start using CPAP as soon as possible as needed during the day in each night Continue oxygen tapered down Continue bronchodilators and antibiotics Follow clinical course closely further recommendations pending plan of care as per clinical response of the patient Time with Patient: Greater than 30
[2019-12-08] MEDS: HEPARIN SODIUM,PORCINE 5,000 UNIT/ML 1 ML VIAL SQ SCH ×2 (15:20→22:39)
[2019-12-08] MEDS: SODIUM CHLORIDE 0.9% 1,000 ML IV SCH (16:18)
[2019-12-08 16:25] LABS: ABG Base Excess 1.5 mmol/L; ABG HCO3 27 mmol/L (21-25); ABG Oxygen Saturation 86.9 % (94-97); ABG PCO2 52 mmHg (35-45); ABG PH 7.33 (7.35-7.45); ABG TCO2 29 mmol/L (19-24); Allen Test Performed? Yes
[2019-12-08 16:29] LABS: ABG PO2 56 mmHg (83-108)
[2019-12-08 16:53] LABS: Calcium 9.3 mg/dL (8.4-10.2); Potassium 5.6 mmol/L (3.5-5.1)
[2019-12-08] MEDS: FAMOTIDINE 20 MG TAB PO SCH (19:45)
[2019-12-08] MEDS: ATORVASTATIN 40 MG TAB PO SCH (19:45)
[2019-12-08] MEDS: FLUTICASONE 110 MCG INHALER INHALATION SCH (19:58)
[2019-12-08] MEDS ORDERED: METOPROLOL TARTRATE 25 MG TAB PO SCH (21:00)
[2019-12-08] MEDS ORDERED: FAMOTIDINE 20 MG TAB PO SCH (21:00)
[2019-12-09] MEDS: IPRATROPIUM-ALBUTEROL 3 ML NEB INHALATION SCH ×6 (04:04→22:25)
[2019-12-09] MEDS: SODIUM CHLORIDE 0.9% 1,000 ML IV SCH ×2 (05:55→14:41)
[2019-12-09 06:50] LABS: HGB 12.8 gm/dL (13.0-17.5); MCH 32.6 pg (25.0-35.0); MCHC 32.8 g/dL (31.0-37.0); MCV 99.2 fL (80.0-100.0); Mean Platelet Volume 9.3; Platelet Count 158 k/uL (150-450); RBC 3.93 m/uL (4.30-5.90); RDW 14.2 % (11.5-15.5); WBC 25.3 k/uL (3.8-10.6)
[2019-12-09 07:07] LABS: Calcium 8.7 mg/dL (8.4-10.2); Potassium 4.7 mmol/L (3.5-5.1)
[2019-12-09] MEDS: HEPARIN SODIUM,PORCINE 5,000 UNIT/ML 1 ML VIAL SQ SCH ×2 (08:31→14:43)
[2019-12-09] MEDS: EZETIMIBE 10 MG TAB PO SCH (08:31)
[2019-12-09] MEDS: ASPIRIN 81 MG PO SCH (08:31)
[2019-12-09] MEDS: AZITHROMYCIN 500 MG TAB PO SCH (08:31)
[2019-12-09] MEDS: METOPROLOL TARTRATE 50 MG TAB PO SCH ×2 (08:31→22:30)
[2019-12-09] MEDS: predniSONE 20 MG TAB PO SCH (08:31)
[2019-12-09] MEDS: TAMSULOSIN 0.4 MG CAP.ER.24H PO SCH (08:31)
[2019-12-09] MEDS ORDERED: NAPROXEN 250 MG TAB PO SCH (09:00)
[2019-12-09] MEDS ORDERED: TAMSULOSIN 0.4 MG CAP.ER.24H PO SCH (09:00)
[2019-12-09] MEDS: FLUTICASONE 110 MCG INHALER INHALATION SCH ×2 (09:00→21:13)
--- NOTE | 2019-12-09 10:38 | XR ---
EXAMINATION TYPE: XR chest 1V portable DATE OF EXAM: 12/09/2019 COMPARISON: 12/08/2019 HISTORY: Shortness of breath TECHNIQUE: Single frontal view of the chest is obtained. FINDINGS: There is a moderate to large right pleural effusion and right-sided multifocal airspace di sease. Trace left pleural effusion blunts the costophrenic angle. Post CABG changes are seen of the c hest. There is engorgement of the superior vena cava/azygos confluence in keeping with volume overloa d. Extensive arthropathy of the shoulders. IMPRESSION: Increasing pleural effusions (moderate to large on the right and trace on the left) and multifocal airspace disease (likely atelectasis). Findings are all likely on the basis of decompensat ed congestive heart failure with engorgement of the superior vena cava/azygos confluence.
--- NOTE | 2019-12-09 11:54 | P.PN ---
Subjective Progress Note Date: 12/09/19 This is a 79-year-old gentleman who follows with Dr. Quintana in the office. He has a known history of coronary artery disease with prior bypass surgery, mild cardiomyopathy with an ejection fraction around 45%, obesity, hypertension, hyperlipidemia. Patient has chronic lower extremity edema with nonhealing wounds. Patient was in the hospital on 11/10/2019, he underwent RADHA of the inferior vena cava, common iliac, and external iliac vein, subsequently underwent successful stenting of the right common iliac vein and external iliac vein. The patient presented to [facility] with symptoms of progressive weakness, body aches, fever, productive cough of dark sputum, and worsening shortness of breath. Influenza A and B were negative. BNP 172. Sodium 135, potassium 3.8, BUN 32, creatinine 1.7. Troponin 0.03. White blood cell count 30.3, hemoglobin 15.4, platelet count 114. Blood pressure on arrival there 102/58, oxygen saturations 96%, initial presentation the oxygen saturation was 79%, heart rate 110 to 1:30, temperature 37. Patient does also have a history of hypothyroidism, chronic kidney disease, COPD. While at [facility], patient was noted to be in moderate respiratory distress, he was quite Tachycardic on presentation here. His initial EKG showed a wide complex tachycardia, could be a sinus tachycardia or atrial flutter. He was mildly hypotensive at that time. He was started on IV Cardizem. Patient's temperature while there was noted to be 101, it was felt that the patient likely had a pneumonia. He was transferred here to [facility] for further evaluation and treatment. Patient's most recent cardiac catheterization was performed in June 2017 which revealed severe triple-vessel coronary artery disease with patent MARTINEZ to the LAD, patent saphenous vein graft to the circumflex, patent saphenous vein graft to the RCA and maximal medical therapy was advised. Chest x-ray was performed on arrival here, results are yet pending. White blood cell count 26, hemoglobin 15.2, platelet count 122. Sodium 135, potassium 4.7, BUN 39, creatinine 1.7, BNP level 2120. At the time of my examination this morning, patient states that he feels significantly improved from his initial presentation to [facility], he is much stronger. He does continue to have a productive cough and still feel somewhat short of breath. Patient is currently on IV and oral antibiotics as well as aspirin 81 mg daily, Lipitor 40 mg daily, metoprolol 25 mg one tablet by mouth twice a day. Blood pressure this morning 140/60 with a heart rate of 108, 91% on 6 L of oxygen. 12/09/2019 Patient was seen and examined this morning, Continues to have productive cough. No further episodes of tachycardia.Blood pressure 112/60 with a heart rate in the 80s to 90s, 92% on 8 L high flow. White blood cell count 25.3, hemoglobin 12.8, sodium 135, BUN 66, creatinine 2.0. Objective - Vital Signs Vital signs: Vital Signs Temp 97.8 F 12/09/19 08:00 Pulse 92 12/09/19 09:13 Resp 24 12/09/19 08:00 BP 112/63 12/09/19 08:00 Pulse Ox 92 L 12/09/19 08:00 Intake & Output 12/08/19 12/09/19 12/09/19 18:59 06:59 18:59 Output Total 50 650 Balance -50 -650 Weight 109 kg Output: Urine 50 650 Straight 500 Other: Voiding Method Urinal Urinal Urinal - Exam PHYSICAL EXAMINATION: GENERAL: 79-year-old gentleman in no acute distress at the time of my examination HEENT: Head is atraumatic, normocephalic. Pupils equal, round. Sclera anicteric. Conjunctiva are clear. Mucous membranes of the mouth are moist. Neck is supple. There is elevated jugular venous pressure. No carotid bruit is heard. HEART EXAMINATION: Heart S1 and S2, irregularly irregular, systolic murmur is heard CHEST EXAMINATION: Lungs reveal decreased air exchange throughout with some scattered wheezing. Diminished bilaterally ABDOMEN: Soft, obese, nontender. Bowel sounds are heard. No organomegaly noted. EXTREMITIES:[ 1+ peripheral pulses with 1-2+ evidence of peripheral edema and evidence of chronic venous stasis. NEUROLOGIC patient is awake, alert and oriented 3 - Labs CBC & Chem 7: 12/09/19 06:08 12/09/19 06:08 Labs: Abnormal Lab Results - Last 24 Hours (Table) 12/08/19 12/08/19 12/09/19 Range/Units 16:19 16:22 06:08 WBC 25.3 H (3.8-10.6) k/uL RBC 3.93 L (4.30-5.90) m/uL Hgb 12.8 L (13.0-17.5) gm/dL ABG pH 7.33 L (7.35-7.45) ABG pCO2 52 H (35-45) mmHg ABG pO2 56 L* (83-108) mmHg ABG HCO3 27 H (21-25) mmol/L ABG Total CO2 29 H (19-24) mmol/L ABG O2 Saturation 86.9 L (94-97) % Sodium 136 L (137-145) mmol/L Potassium 5.6 H (3.5-5.1) mmol/L BUN 56 H (9-20) mg/dL Creatinine 2.40 H (0.66-1.25) mg/dL Glucose 189 H (74-99) mg/dL 12/09/19 Range/Units 06:08 WBC (3.8-10.6) k/uL RBC (4.30-5.90) m/uL Hgb (13.0-17.5) gm/dL ABG pH (7.35-7.45) ABG pCO2 (35-45) mmHg ABG pO2 (83-108) mmHg ABG HCO3 (21-25) mmol/L ABG Total CO2 (19-24) mmol/L ABG O2 Saturation (94-97) % Sodium 135 L (137-145) mmol/L Potassium (3.5-5.1) mmol/L BUN 66 H (9-20) mg/dL Creatinine 2.04 H (0.66-1.25) mg/dL Glucose 144 H (74-99) mg/dL Assessment and Plan Plan: Assessment and plan #1 symptoms of weakness and body aches with associated fever, currently on antibiotics for pneumonia. #2 wide complex tachycardia, likely sinus tachycardia versus atrial flutter #3 known history of coronary artery disease with prior bypass surgery, most recent cardiac catheterization performed in 2017, medical therapy advised at that time #4 mild ischemic cardiomyopathy with prior documented ejection fraction of 45% #5 obesity #6 hypertension #7 COPD #8 hyperlipidemia #9 recent iliac vein stenting Plan We will continue baby aspirin daily, Lipitor, increase dose of metoprolol to 50 mg twice a day. Echo revealed normal left ventricular systolic function. We will follow this patient along with you now on an as-needed basis only, please don't hesitate to call with any questions. DNP note has been reviewed, I agree with a documented findings and plan of care. Patient was seen and examined.
--- NOTE | 2019-12-09 14:18 | P.PN ---
Subjective Progress Note Date: 12/09/19 Principal diagnosis: 79-year-old pleasant male came in with complaints of fever cough and brownish sputum production going on for about 3-4 days worsening shortness of breath there is no much air entry into bilateral lung benavides patient does have leukocytosis influenza A and B is negative patient does have pneumonic infiltrate on the chest to x-ray, which is showing mid left lower lobe infiltrate with some right-sided pleural effusion, I did review the x-ray which showed did show pleural effusion and there may be infiltrate in the right lower lobe as well. Patient is also being treated for COPD and was diagnosed with us sleep apnea recently and patient is on CPAP machine. Patient is not wheezing but there is not much air movement and bilateral lung benavides patient is c omplaining of generalized body aches. 12/09/2019 Patient is sitting up in the bed and appears to be in no acute distress. Patient is currently off of BiPAP and on 8 L high flow. Repeat chest x-ray today shows increasing pleural effusions moderate to large on the right and trace on the left and multifocal airspace disease likely atelectasis with volume overload. IV fluids will be titrated to 50 mL per hour and a one-time dose of IV Lasix will be given as the patient has not been having much urine output today. A Appiah catheter will also be placed to monitor I's and O's. Will repeat a.m. labs. Objective - Vital Signs Vital signs: Vital Signs Temp 97.8 F 12/09/19 08:00 Pulse 88 12/09/19 12:09 Resp 20 12/09/19 12:00 BP 126/64 12/09/19 11:55 Pulse Ox 88 L 12/09/19 11:55 Intake & Output 12/08/19 12/09/19 12/09/19 18:59 06:59 18:59 Output Total 50 650 Balance -50 -650 Weight 109 kg Output: Urine 50 650 Straight 500 Other: Voiding Method Urinal Urinal Urinal - Exam GENERAL: The patient is alert and oriented x3, Obese. Much more awake today HEENT: Pupils are round and equally reacting to light. EOMI. No scleral icterus. No conjunctival pallor. Normocephalic, atraumatic. No pharyngeal erythema. No thyromegaly. CARDIOVASCULAR: S1 and S2 present. No murmurs, rubs, or gallops. PULMONARY: significant decreased air movement in the bilateral lung benavides with minimal wheezing and a few scattered crackles were noted ABDOMEN: Soft, obese, nontender, nondistended, normoactive bowel sounds. No palpable organomegaly. MUSCULOSKELETAL: No joint swelling or deformity. EXTREMITIES: No cyanosis, clubbing, or pedal edema. NEUROLOGICAL: Gross neurological examination did not reveal any focal deficits. SKIN: No rashes. - Labs CBC & Chem 7: 12/09/19 06:08 12/09/19 06:08 Labs: Abnormal Lab Results - Last 24 Hours (Table) 12/08/19 12/08/19 12/09/19 Range/Units 16:19 16:22 06:08 WBC 25.3 H (3.8-10.6) k/uL RBC 3.93 L (4.30-5.90) m/uL Hgb 12.8 L (13.0-17.5) gm/dL ABG pH 7.33 L (7.35-7.45) ABG pCO2 52 H (35-45) mmHg ABG pO2 56 L* (83-108) mmHg ABG HCO3 27 H (21-25) mmol/L ABG Total CO2 29 H (19-24) mmol/L ABG O2 Saturation 86.9 L (94-97) % Sodium 136 L (137-145) mmol/L Potassium 5.6 H (3.5-5.1) mmol/L BUN 56 H (9-20) mg/dL Creatinine 2.40 H (0.66-1.25) mg/dL Glucose 189 H (74-99) mg/dL 12/09/19 Range/Units 06:08 WBC (3.8-10.6) k/uL RBC (4.30-5.90) m/uL Hgb (13.0-17.5) gm/dL ABG pH (7.35-7.45) ABG pCO2 (35-45) mmHg ABG pO2 (83-108) mmHg ABG HCO3 (21-25) mmol/L ABG Total CO2 (19-24) mmol/L ABG O2 Saturation (94-97) % Sodium 135 L (137-145) mmol/L Potassium (3.5-5.1) mmol/L BUN 66 H (9-20) mg/dL Creatinine 2.04 H (0.66-1.25) mg/dL Glucose 144 H (74-99) mg/dL Assessment and Plan Assessment: -Sepsis: Secondary to right lower lobe pneumonia along with left middle lobe pneumonia with a component of COPD with acute exacerbation. Patient is on Rocephin and azithromycin which will be continued -Acute hypoxic as well as hypercapnic respiratory failure secondary to right lower lobe pneumonia along with the possible COPD exacerbation, patient may have restrictive lung disease from his obesity and sleep apnea. Patient currently on 8 L of high flow oxygen and normally doesn't use any oxygen at home patient will continue on oral steroids and breathing inhalational treatments -Coronary artery disease recent cardiac catheterization which did not show any stent Cardiovascular disease -Benign prostatic hypertrophy continue tamsulosin hyperlipidemia: Continue with statin -Obesity and sleep apnea continue with the CPAP at home settings. Patient was started on BiPAP last night and is currently on 8 L of high flow oxygen at this time -COPD with acute exacerbation -Possible atrial flutter R wide-complex sinus tachycardia: Cardiology evaluated the patient patient is being continued on metoprolol 50 twice a day -Mild ischemic cardiomyopathy EF of 45% patient will be resumed on his home dose of Lasix does not appear to be in heart failure exacerbation at this time -Acute renal failure: Probably acute tubular necrosis from sepsis will consult to nephrology recent creatinine appears to be around 1.1. Creatinine has slightly improved and is 2.04 today. Per nursing staff patient is not making much urine output and a Appiah catheter along with one-time IV Lasix will be given today. -DVT prophylaxis with subcutaneous heparin -GI prophylaxis with the Pepcid
[2019-12-09] MEDS ORDERED: FUROSEMIDE 10 MG/ML 4 ML VIAL IV STA (14:30)
--- NOTE | 2019-12-09 16:20 | P.PN ---
Subjective Progress Note Date: 12/09/19 Principal diagnosis: Left lower lobe pneumonia End-stage COPD Morbid obesity obstructive sleep apnea Altered mental status and lethargy due to hypercapnia and obstructive sleep apnea Sepsis 12/09/2019, patient seen eval examined during the rounds patient currently on high flow oxygen resting comfortably, patient has been on BiPAP 15/10 with 40% oxygen throughout the night and this afternoon, mental status significantly improved, more awake and alert and less lethargic, labs reviewed medications reviewed Objective - Vital Signs Vital signs: Vital Signs Temp 98.2 F 12/09/19 15:01 Pulse 93 12/09/19 15:01 Resp 20 12/09/19 15:01 BP 127/65 12/09/19 15:01 Pulse Ox 93 L 12/09/19 15:01 Intake & Output 12/08/19 12/09/19 12/09/19 18:59 06:59 18:59 Intake Total 700 Output Total 50 650 550 Balance -50 -650 150 Weight 109 kg Intake: Intake, IV Titration 700 Amount Sodium Chloride 0.9% 1, 700 000 ml @ 50 mls/hr IV . Q20H [facility] Rx#:[id number] Output: Urine 50 650 500 Straight 500 Post Void Residual 50 Other: Voiding Method Urinal Urinal Indwelling Catheter # Voids 1 - Exam GENERAL: The patient is alert and oriented x3, lethargic Obese HEENT: Pupils are round and equally reacting to light. EOMI. No scleral icterus. No conjunctival pallor. Normocephalic, atraumatic. No pharyngeal erythema. No thyromegaly. CARDIOVASCULAR: S1 and S2 present. No murmurs, rubs, or gallops. PULMONARY: No significant air movement in the bilateral lung benavides minimal whee zing was appreciated no crackles were appreciated ABDOMEN: Soft, nontender, nondistended, normoactive bowel sounds. No palpable organomegaly. MUSCULOSKELETAL: No joint swelling or deformity. EXTREMITIES: No cyanosis, clubbing, or pedal edema. NEUROLOGICAL: Gross neurological examination did not reveal any focal deficits. SKIN: No rashes. - Labs CBC & Chem 7: 12/09/19 06:08 12/09/19 06:08 Labs: Abnormal Lab Results - Last 24 Hours (Table) 12/08/19 12/08/19 12/09/19 Range/Units 16:19 16:22 06:08 WBC 25.3 H (3.8-10.6) k/uL RBC 3.93 L (4.30-5.90) m/uL Hgb 12.8 L (13.0-17.5) gm/dL ABG pH 7.33 L (7.35-7.45) ABG pCO2 52 H (35-45) mmHg ABG pO2 56 L* (83-108) mmHg ABG HCO3 27 H (21-25) mmol/L ABG Total CO2 29 H (19-24) mmol/L ABG O2 Saturation 86.9 L (94-97) % Sodium 136 L (137-145) mmol/L Potassium 5.6 H (3.5-5.1) mmol/L BUN 56 H (9-20) mg/dL Creatinine 2.40 H (0.66-1.25) mg/dL Glucose 189 H (74-99) mg/dL 12/09/19 Range/Units 06:08 WBC (3.8-10.6) k/uL RBC (4.30-5.90) m/uL Hgb (13.0-17.5) gm/dL ABG pH (7.35-7.45) ABG pCO2 (35-45) mmHg ABG pO2 (83-108) mmHg ABG HCO3 (21-25) mmol/L ABG Total CO2 (19-24) mmol/L ABG O2 Saturation (94-97) % Sodium 135 L (137-145) mmol/L Potassium (3.5-5.1) mmol/L BUN 66 H (9-20) mg/dL Creatinine 2.04 H (0.66-1.25) mg/dL Glucose 144 H (74-99) mg/dL Assessment and Plan Assessment: Left lower lobe pneumonia End-stage COPD Morbid obesity obstructive sleep apnea Altered mental status and lethargy due to hypercapnia and obstructive sleep apnea Sepsis Plan: Continue supplemental oxygen Start using CPAP as soon as possible as needed during the day in each night Continue oxygen tapered down Continue bronchodilators and antibiotics Follow clinical course closely further recommendations pending plan of care as per clinical response of the patient Time with Patient: Greater than 30
[2019-12-09] MEDS ORDERED: HEPARIN SODIUM,PORCINE 5,000 UNIT/ML 1 ML VIAL IV ONE (18:02)
[2019-12-09] MEDS ORDERED: HEPARIN SODIUM,PORCINE 5,000 UNIT/ML 1 ML VIAL IV PRN (18:02)
[2019-12-09] MEDS ORDERED: METOPROLOL TARTRATE 50 MG TAB PO STA (18:03)
--- NOTE | 2019-12-09 18:20 | CONS ---
CONSULTATION REASON FOR CONSULT: Renal failure. HISTORY OF PRESENT ILLNESS: The patient is a 79-year-old male who was admitted to the hospital with complaints of cough, fever, shortness of breath over the last 3 to 4 days. Currently patient is maintained on antibiotics. He also has underlying COPD. He denies any prior history of kidney diseases. Serum creatinine was 1.78 on initial admission. It did go up to 2.4 and this morning it is at 2.0. According to nursing staff, patient's blood pressure was low yesterday and he was started on IV fluids. Serum creatinine was 1.1 on 11/11/2019. Patient has been voiding. He has had some degree of urine retention with straight catheterization for about 500 mL this morning. At home prior to admission patient was on Naprosyn, which is currently on hold. He was also on loop diuretics. PAST MEDICAL HISTORY: 1. Coronary artery disease. 2. Hyperlipidemia. 3. COPD. 4. Hypertension. 5. Osteoarthritis. 6. Gout. 7. Skin cancer. 8. Hydrocele. PAST SURGICAL HISTORY: 1. Coronary artery bypass surgery. 2. Cholecystectomy. 3. Cardiac catheterization. 4. Right knee arthroplasty. 5. Shoulder surgery. 6. Spinal cyst removed. 7. Surgery on left middle finger. 8. Colonoscopy. 9. Cataract surgery. 10.Valvular heart surgery. SOCIAL HISTORY: Patient is a former smoker. No history of drug abuse or alcohol abuse. MEDICATIONS: Medications prior to admission included zyloprim, aspirin, Zyrtec, Naprosyn, Flomax, Spiriva, Lipitor, Singulair, Zetia, Lopressor, potassium, Demadex, Plavix. ALLERGIES: NONE. PHYSICAL EXAMINATION: On examination, patient is currently mildly short of breath. He is not in any acute distress. Blood pressure this morning was 112/63, heart rate 96 per minute. He is afebrile. EXAMINATION OF THE HEART: S1 and S2. EXAMINATION OF LUNGS: Bilateral breath sounds are heard. Decreased breath sounds at bases with basal crackles heard. ABDOMEN: Soft, distended, non-tender. Examination of lower extremities shows edema 1+ bilaterally. PHARMACY AIDE exam is grossly intact. LABS: Sodium 135, potassium 4.7, chloride 99. CO2 is 27. BUN 66, creatinine 2.04, hemoglobin 12.8 g/dL. ASSESSMENT: 1. Acute kidney injury, cardiorenal, and possibly with an element of underlying urine retention. Patient was also on nonsteroidal anti-inflammatory agents at home prior to admission, which also probably contributed to his acute kidney injury. Previous creatinine was 1.1 on 11/11/2019. Blood pressure was low yesterday with systolic in the 90s, and at that time patient was started on IV fluids. His blood pressure is currently much improved. I will check a chest x-ray to rule out underlying CHF and we will continue to monitor for urine retention. No nephrotoxic agents on board currently. 2. Chronic obstructive pulmonary disease exacerbation. 3. Possible pneumonia, maintained on antibiotics. 4. Volume overload. Chest x-ray shows evidence of CHF and decompensated heart failure. I will discontinue the IV fluids. Patient did receive a dose of Lasix and I will maintain him on regular scheduled dose of loop diuretics. 5. Chronic kidney disease, stage III; baseline creatinine about 1.1. Etiology is most likely nephrosclerosis. Check urinalysis. PLAN: Check UA. Continue to monitor for urine retention. Discontinue IV fluids. Maintain patient on scheduled dose of IV Lasix. Repeat labs in a.m. Agree with discontinuation of NSAIDs and patient should avoid the use of Naprosyn post discharge as well. Check urinalysis and check ultrasound of the kidneys. Thank you for this consultation. Will continue to follow the patient with you during his hospitalization. MMODL / IJN: [id number] /
[2019-12-09] MEDS: HEPARIN SOD,PORK IN 0.45% NACL 25,000 UNIT in 0.45% NACL 1 250ML.BAG IV SCH (18:36)
[2019-12-09 18:42] LABS: Basophils # (A) 0.3 k/uL (0-0.2); Basophils % (A) 1 %; Eosinophils # (A) 0.1 k/uL (0-0.7); Eosinophils % (A) 0 %; HCT 42.6 % (39.0-53.0); HGB 13.8 gm/dL (13.0-17.5); Lymphocytes % (A) 0 %; MCH 32.2 pg (25.0-35.0); MCHC 32.4 g/dL (31.0-37.0); MCV 99.5 fL (80.0-100.0); Mean Platelet Volume 9.7; Monocytes # (A) 0.5 k/uL (0-1.0); Monocytes % (A) 2 %; Neutrophils # (A) 21.5 k/uL (1.3-7.7); Neutrophils % (A) 95 %; Platelet Count 150 k/uL (150-450); RBC 4.28 m/uL (4.30-5.90); RDW 14.3 % (11.5-15.5); WBC 22.5 k/uL (3.8-10.6)
[2019-12-09 18:55] LABS: D-Dimer 2.36 mg/L FEU (<0.60); Partial Thromboplastin Time 27.5 sec (22.0-30.0); Prothrombin Time 10.1 sec (9.0-12.0)
--- NOTE | 2019-12-09 22:17 | NM ---
EXAMINATION TYPE: NM pul perfusion DATE OF EXAM: 12/09/2019 COMPARISON: 12/08 and 12/09/2019 radiographs HISTORY: Elevated d-dimer and dyspnea TECHNIQUE: Departmental protocol. Following administration of 5.3 mCi Tc 99m MAA, 7 multiplanar lung perfusion scintigraphic images were obtained. FINDINGS: On the left, there are no perfusion defects. On the right, the perfusion is robust in the upper lung zone. The relative lack of perfusion in the r ight mid and lower lobes corresponds with the radiographic findings of massive right pleural effusion with right lung parenchymal airlessness. IMPRESSION: Difficult interpretation due to the pleural parenchymal pathology within the right hemithorax, but ov erall radiographic impression is negative for pulmonary embolism.
[2019-12-09] MEDS: HYDROcodone/APAP 10-325MG 1 EACH TAB PO PRN (22:27)
[2019-12-09] MEDS: FUROSEMIDE 10 MG/ML 4 ML VIAL IV SCH (22:27)
[2019-12-09] MEDS: FAMOTIDINE 20 MG TAB PO SCH (22:27)
[2019-12-09] MEDS: ATORVASTATIN 40 MG TAB PO SCH (22:32)
[2019-12-10] MEDS: IPRATROPIUM-ALBUTEROL 3 ML NEB INHALATION SCH ×5 (03:40→21:13)
[2019-12-10 06:26] LABS: Basophils # (A) 0.1 k/uL (0-0.2); Basophils % (A) 0 %; Eosinophils % (A) 0 %; HCT 40.5 % (39.0-53.0); HGB 13.1 gm/dL (13.0-17.5); Lymphocytes # (A) 0.3 k/uL (1.0-4.8); Lymphocytes % (A) 1 %; MCH 32.3 pg (25.0-35.0); MCHC 32.4 g/dL (31.0-37.0); MCV 99.5 fL (80.0-100.0); Macrocytosis Slight; Mean Platelet Volume 9.8; Monocytes # (A) 0.6 k/uL (0-1.0); Monocytes % (A) 3 %; Neutrophils # (A) 18.9 k/uL (1.3-7.7); Neutrophils % (A) 95 %; Platelet Count 142 k/uL (150-450); RBC 4.07 m/uL (4.30-5.90); RDW 14.4 % (11.5-15.5); WBC 19.9 k/uL (3.8-10.6)
[2019-12-10 06:58] LABS: Calcium 8.7 mg/dL (8.4-10.2); Potassium 4.6 mmol/L (3.5-5.1)
[2019-12-10] MEDS: FLUTICASONE 110 MCG INHALER INHALATION SCH ×2 (08:13→21:13)
[2019-12-10] MEDS: ASPIRIN 81 MG PO SCH (09:26)
[2019-12-10] MEDS: TAMSULOSIN 0.4 MG CAP.ER.24H PO SCH (09:26)
[2019-12-10] MEDS: predniSONE 20 MG TAB PO SCH (09:26)
[2019-12-10] MEDS: EZETIMIBE 10 MG TAB PO SCH (09:26)
[2019-12-10] MEDS: METOPROLOL TARTRATE 50 MG TAB PO SCH (09:26)
[2019-12-10] MEDS: AZITHROMYCIN 500 MG TAB PO SCH (09:26)
[2019-12-10] MEDS: FUROSEMIDE 10 MG/ML 4 ML VIAL IV SCH ×2 (09:27→20:51)
--- NOTE | 2019-12-10 11:47 | PN ---
PROGRESS NOTE The patient is seen for followup for acute kidney injury. He was admitted to the hospital with fever, shortness of breath and cough. The patient is maintained on antibiotics. He is also being diuresed for CHF and volume overload. Serum creatinine was 2.4 at peak which had increased from 1.7 on initial admission. Previous creatinine 1.1 on 11/11/2019. The patient was started on IV Lasix yesterday and his creatinine is down to 1.6. He has also had an element of urine retention with 500 mL of urine obtained on straight cath and he currently has an indwelling Appiah catheter. PHYSICAL EXAMINATION: On examination, patient is comfortable. He is not in any acute distress. Blood pressure is 146/68, heart rate 108 per minute. He is afebrile. EXAMINATION OF THE HEART: S1, S2. EXAMINATION OF THE LUNGS: Bilateral breath sounds are heard. Decreased breath sounds at the bases with basal crackles heard. Abdomen is soft, obese. Examination of lower extremities shows chronic skin changes, edema 1+ bilaterally. LABS: Labs show sodium of 139, potassium 4.6, chloride 101, BUN 78, serum creatinine 1.68 and hemoglobin 13.1 g/dL. ASSESSMENT: 1. Acute kidney injury, cardiorenal and secondary to urine retention currently with indwelling Appiah catheter and started on IV Lasix with improving renal function. 2. Volume overload continue with current dose of Lasix. Repeat labs in a.m. 3. Congestive heart failure, acute on top of chronic. Echocardiogram is pending. The patient is being seen by Cardiology as well. 4. Hyperkalemia associated with acute kidney injury, now improved. PLAN: Continue off of NSAIDs that patient was taking at home. Continue to diurese patient. Repeat labs in a.m. Continue with the Appiah catheter as well for now. MMODL / IJN: [id number] /
[2019-12-10 15:17] LABS: Glucose,Whole Blood 160 mg/dL (75-99)
[2019-12-10 15:34] LABS: ABG Base Excess 1.8 mmol/L; ABG HCO3 30 mmol/L (21-25); ABG Oxygen Saturation 93.4 % (94-97); ABG PH 7.21 (7.35-7.45); ABG PO2 82 mmHg (83-108); ABG TCO2 32 mmol/L (19-24); Allen Test Performed? Yes
[2019-12-10 15:38] LABS: ABG PCO2 75 mmHg (35-45)
--- NOTE | 2019-12-10 16:22 | P.PN ---
Subjective Progress Note Date: 12/10/19 Principal diagnosis: 79-year-old pleasant male came in with complaints of fever cough and brownish sputum production going on for about 3-4 days worsening shortness of breath there is no much air entry into bilateral lung benavides patient does have leukocytosis influenza A and B is negative patient does have pneumonic infiltrate on the chest to x-ray, which is showing mid left lower lobe infiltrate with some right-sided pleural effusion, I did review the x-ray which showed did show pleural effusion and there may be infiltrate in the right lower lobe as well. Patient is also being treated for COPD and was diagnosed with us sleep apnea recently and patient is on CPAP machine. Patient is not wheezing but there is not much air movement and bilateral lung benavides patient is c omplaining of generalized body aches. 12/09/2019 Patient is sitting up in the bed and appears to be in no acute distress. Patient is currently off of BiPAP and on 8 L high flow. Repeat chest x-ray today shows increasing pleural effusions moderate to large on the right and trace on the left and multifocal airspace disease likely atelectasis with volume overload. IV fluids will be titrated to 50 mL per hour and a one-time dose of IV Lasix will be given as the patient has not been having much urine output today. A Appiah catheter will also be placed to monitor I's and O's. Will repeat a.m. labs. 12/10/2019 Patient is sitting up in the chair and appears to be in no acute distress. Patient continues to be confused at times and is still requiring 8 L of high flow oxygen. Patient was on the BiPAP day before yesterday and did not like it and was being maintained on high flow oxygen via nasal cannula. Patient states that his breathing has not gotten much better since yesterday. Patient is currently on IV Lasix twice daily and will continue this time. Creatinine has trended down and is currently 1.68. D-dimer was positive yesterday at 2.36 and a VQ scan was done showing no pulmonary embolism. After speaking with nursing staff today patient continues to deteriorate and become more and more lethargic and not responding well to commands. Nursing staff stated that he was halluc inating last night. And a team was called as the patient was quite lethargic and unresponsive. Patient is currently being put back on the BiPAP at this time. Family is at the bedside. Objective - Vital Signs Vital signs: Vital Signs Temp 98.8 F 12/10/19 15:31 Pulse 99 12/10/19 15:31 Resp 18 12/10/19 15:31 BP 148/78 12/10/19 15:31 Pulse Ox 97 12/10/19 15:31 Intake & Output 12/09/19 12/10/19 12/10/19 18:59 06:59 18:59 Intake Total 700 29.081 Output Total 1050 2450 Balance -350 -2420.919 Weight 104.7 kg Intake: Intake, IV Titration 700 29.081 Amount Heparin Sod,Pork in 0.45% 29.081 NaCl 25,000 unit In 0.45 % NaCl 1 250ml.bag @ 9.2 UNITS/KG/HR 10.028 mls/hr IV .Q24H [facility] Rx#: [id number] Sodium Chloride 0.9% 1, 700 000 ml @ 50 mls/hr IV . Q20H [facility] Rx#:[id number] Output: Urine 1000 2450 Straight 1500 Post Void Residual 50 Other: Voiding Method Indwelling Catheter Indwelling Catheter Indwelling Catheter # Voids 1 - Exam GENERAL: The patient is alert and oriented x1, Obese. Quite lethargic and becoming unresponsive at times HEENT: Pupils are round and equally reacting to light. EOMI. No scleral icterus. No conjunctival pallor. Normocephalic, atraumatic. No pharyngeal erythema. No thyromegaly. CARDIOVASCULAR: S1 and S2 present. No murmurs, rubs, or gallops. PULMONARY: significant decreased air movement in the bilateral lung benavides with minimal wheezing and a few scattered crackles were noted. No improvement of air entry and yesterday. ABDOMEN: Soft, obese, nontender, nondistended, normoactive bowel sounds. No palpable organomegaly. MUSCULOSKELETAL: No joint swelling or deformity. EXTREMITIES: No cyanosis, clubbing, or pedal edema. NEUROLOGICAL: Gross neurological examination did not reveal any focal deficits. SKIN: No rashes. - Labs CBC & Chem 7: 12/10/19 05:58 12/10/19 05:58 Labs: Abnormal Lab Results - Last 24 Hours (Table) 12/09/19 12/09/19 12/10/19 Range/Units 18:24 18:24 00:39 WBC 22.5 H (3.8-10.6) k/uL RBC 4.28 L (4.30-5.90) m/uL Plt Count (150-450) k/uL Neutrophils # 21.5 H (1.3-7.7) k/uL Lymphocytes # 0.0 L (1.0-4.8) k/uL Basophils # 0.3 H (0-0.2) k/uL APTT 48.4 H (22.0-30.0) sec D-Dimer 2.36 H (<0.60) mg/L FEU ABG pH (7.35-7.45) ABG pCO2 (35-45) mmHg ABG pO2 (83-108) mmHg ABG HCO3 (21-25) mmol/L ABG Total CO2 (19-24) mmol/L ABG O2 Saturation (94-97) % BUN (9-20) mg/dL Creatinine (0.66-1.25) mg/dL Glucose (74-99) mg/dL POC Glucose (mg/dL) (75-99) mg/dL 12/10/19 12/10/19 12/10/19 Range/Units 05:58 05:58 15:06 WBC 19.9 H (3.8-10.6) k/uL RBC 4.07 L (4.30-5.90) m/uL Plt Count 142 L (150-450) k/uL Neutrophils # 18.9 H (1.3-7.7) k/uL Lymphocytes # 0.3 L (1.0-4.8) k/uL Basophils # (0-0.2) k/uL APTT (22.0-30.0) sec D-Dimer (<0.60) mg/L FEU ABG pH (7.35-7.45) ABG pCO2 (35-45) mmHg ABG pO2 (83-108) mmHg ABG HCO3 (21-25) mmol/L ABG Total CO2 (19-24) mmol/L ABG O2 Saturation (94-97) % BUN 78 H (9-20) mg/dL Creatinine 1.68 H (0.66-1.25) mg/dL Glucose 146 H (74-99) mg/dL POC Glucose (mg/dL) 160 H (75-99) mg/dL 12/10/19 Range/Units 15:31 WBC (3.8-10.6) k/uL RBC (4.30-5.90) m/uL Plt Count (150-450) k/uL Neutrophils # (1.3-7.7) k/uL Lymphocytes # (1.0-4.8) k/uL Basophils # (0-0.2) k/uL APTT (22.0-30.0) sec D-Dimer (<0.60) mg/L FEU ABG pH 7.21 L (7.35-7.45) ABG pCO2 75 H* (35-45) mmHg ABG pO2 82 L (83-108) mmHg ABG HCO3 30 H (21-25) mmol/L ABG Total CO2 32 H (19-24) mmol/L ABG O2 Saturation 93.4 L (94-97) % BUN (9-20) mg/dL Creatinine (0.66-1.25) mg/dL Glucose (74-99) mg/dL POC Glucose (mg/dL) (75-99) mg/dL Microbiology - Last 24 Hours (Table) 12/09/19 11:51 Gram Stain - Preliminary Sputum 12/08/19 16:22 Blood Culture - Preliminary Blood No Growth after 24 hours Assessment and Plan Assessment: -Sepsis: Secondary to right lower lobe pneumonia along with left middle lobe pneumonia with a component of COPD with acute exacerbation. Patient is on Rocephin and azithromycin which will be continued -Acute hypoxic as well as hypercapnic respiratory failure secondary to right lower lobe pneumonia along with the possible COPD exacerbation, patient may have restrictive lung disease from his obesity and sleep apnea. Patient currently on 8 L of high flow oxygen and normally doesn't use any oxygen at home patient will continue on oral steroids and breathing inhalational treatments. Patient is currently being put back on the BiPAP at this time due to increased lethargy and unresponsiveness -Coronary artery disease recent cardiac catheterization which did not show any stent Cardiovascular disease -Benign prostatic hypertrophy continue tamsulosin hyperlipidemia: Continue with statin -Obesity and sleep apnea continue with the CPAP at home settings. Patient was started on BiPAP again -COPD with acute exacerbation -Possible atrial flutter R wide-complex sinus tachycardia: Cardiology evaluated the patient patient is being continued on metoprolol 50 twice a day -Mild ischemic cardiomyopathy EF of 45% patient will be resumed on his home dose of Lasix does not appear to be in heart failure exacerbation at this time -Acute renal failure: Probably acute tubular necrosis from sepsis will consult to nephrology recent creatinine appears to be around 1.1. Creatinine has slightly improved and is 1.68 today. Per nursing staff patient is not making much urine output and a Appiah catheter. Will continue with IV Lasix twice daily at this time -DVT prophylaxis with subcutaneous heparin -GI prophylaxis with the Pepcid
[2019-12-10] MEDS: ATORVASTATIN 40 MG TAB PO SCH (19:33)
[2019-12-10] MEDS: FAMOTIDINE 20 MG TAB PO SCH (19:33)
[2019-12-10] MEDS: HEPARIN SOD,PORK IN 0.45% NACL 25,000 UNIT in 0.45% NACL 1 250ML.BAG IV SCH (19:34)
[2019-12-10] MEDS: METOPROLOL TARTRATE 5 MG/5 ML VIAL IVP SCH (23:26)
[2019-12-11] MEDS: IPRATROPIUM-ALBUTEROL 3 ML NEB INHALATION SCH ×7 (00:15→23:23)
[2019-12-11] MEDS: METOPROLOL TARTRATE 50 MG TAB PO SCH ×2 (00:40→20:17)
[2019-12-11] MEDS: METOPROLOL TARTRATE 5 MG/5 ML VIAL IVP SCH (05:56)
[2019-12-11 06:26] LABS: HGB 12.8 gm/dL (13.0-17.5); MCH 32.6 pg (25.0-35.0); MCHC 32.9 g/dL (31.0-37.0); MCV 99.1 fL (80.0-100.0); Mean Platelet Volume 9.8; Platelet Count 144 k/uL (150-450); RBC 3.94 m/uL (4.30-5.90); RDW 14.4 % (11.5-15.5); WBC 13.5 k/uL (3.8-10.6)
[2019-12-11 07:54] LABS: Calcium 8.8 mg/dL (8.4-10.2); Potassium 4.2 mmol/L (3.5-5.1)
[2019-12-11] MEDS: FLUTICASONE 110 MCG INHALER INHALATION SCH ×2 (08:25→20:02)
[2019-12-11] MEDS: AZITHROMYCIN 500 MG TAB PO SCH (09:48)
[2019-12-11] MEDS: predniSONE 20 MG TAB PO SCH (09:49)
[2019-12-11] MEDS: EZETIMIBE 10 MG TAB PO SCH (09:49)
[2019-12-11] MEDS: TAMSULOSIN 0.4 MG CAP.ER.24H PO SCH (09:49)
[2019-12-11] MEDS: ASPIRIN 81 MG PO SCH (09:49)
[2019-12-11] MEDS: FUROSEMIDE 10 MG/ML 4 ML VIAL IV SCH ×2 (09:52→20:19)
[2019-12-11] MEDS ORDERED: METOPROLOL TARTRATE 50 MG TAB PO SCH ×2 (10:30→21:00)
--- NOTE | 2019-12-11 12:15 | P.PN ---
Subjective Progress Note Date: 12/11/19 Principal diagnosis: This is a 79-year-old male is followed up because of acute kidney injury from a combination of pneumonia and congestive heart failure outlet obstruction. He is doing better with less shortness of breath,, he is currently on a Ventimask. Appetite is poor He is awake and alert. H 24-hour intake is 460 output 1418 11 somewhat L-dopa Objective - Vital Signs Vital signs: Vital Signs Temp 97.9 F 12/11/19 08:00 Pulse 83 12/11/19 11:23 Resp 20 12/11/19 08:00 BP 138/64 12/11/19 08:00 Pulse Ox 93 L 12/11/19 08:00 Intake & Output 12/10/19 12/11/19 12/11/19 18:59 06:59 18:59 Intake Total 220.919 240 Output Total 200 1280 725 Balance 20.919 -1040 -725 Weight 109 kg Intake: Intake, IV Titration 220.919 Amount Heparin Sod,Pork in 0.45% 220.919 NaCl 25,000 unit In 0.45 % NaCl 1 250ml.bag @ 9.2 UNITS/KG/HR 10.028 mls/hr IV .Q24H [facility] Rx#: [id number] Oral 240 Output: Urine 200 1280 725 Other: Voiding Method Indwelling Catheter Indwelling Catheter Indwelling Catheter On examination his awake alert oriented on oxygen HEENT exam no JVP neck is supple no facial asymmetry Lungs are significant for diminished air entry bilaterally especially in the bases. Heart sounds are unremarkable for any murmur rub gallop Abdomen soft nontender, no organomegaly noted Extremity examination exam reveals mild edema Neurologically awake alert oriented but generalized weakness - Labs CBC & Chem 7: 12/11/19 06:04 12/11/19 06:04 Labs: Abnormal Lab Results - Last 24 Hours (Table) 12/10/19 12/10/19 12/11/19 Range/Units 15:06 15:31 06:04 WBC 13.5 H (3.8-10.6) k/uL RBC 3.94 L (4.30-5.90) m/uL Hgb 12.8 L (13.0-17.5) gm/dL Plt Count 144 L (150-450) k/uL APTT (22.0-30.0) sec ABG pH 7.21 L (7.35-7.45) ABG pCO2 75 H* (35-45) mmHg ABG pO2 82 L (83-108) mmHg ABG HCO3 30 H (21-25) mmol/L ABG Total CO2 32 H (19-24) mmol/L ABG O2 Saturation 93.4 L (94-97) % BUN (9-20) mg/dL Creatinine (0.66-1.25) mg/dL Glucose (74-99) mg/dL POC Glucose (mg/dL) 160 H (75-99) mg/dL 12/11/19 12/11/19 Range/Units 06:04 06:04 WBC (3.8-10.6) k/uL RBC (4.30-5.90) m/uL Hgb (13.0-17.5) gm/dL Plt Count (150-450) k/uL APTT 64.5 H (22.0-30.0) sec ABG pH (7.35-7.45) ABG pCO2 (35-45) mmHg ABG pO2 (83-108) mmHg ABG HCO3 (21-25) mmol/L ABG Total CO2 (19-24) mmol/L ABG O2 Saturation (94-97) % BUN 82 H (9-20) mg/dL Creatinine 1.47 H (0.66-1.25) mg/dL Glucose 142 H (74-99) mg/dL POC Glucose (mg/dL) (75-99) mg/dL Microbiology - Last 24 Hours (Table) 12/09/19 11:51 Gram Stain - Final Sputum Sputum Culture - Final Bettie albicans 12/08/19 16:22 Blood Culture - Preliminary Blood No Growth after 48 hours Assessment and Plan Assessment: Impression 1. Acute kidney injury secondary to combination of pneumonia, congestive heart failure and outlet obstruction. Has a Appiah catheter creatinine is improved from a peak of 2.4 dated 12/08/2019 to 1.47 this morning. Urine output is satisfactory 2. Congestive heart failure better 3. Bilateral effusions 4. Significant primary respiratory acidosis, pH is 7.21, mostly secondary to hypercapnia with a pCO2 of 75. Recommendation 1. Continue Lasix at 40 every 12. 2. Hopefully the improvement in congestive heart failure and bilateral effusions will improve his oxygenation as well as his ventilation and his respiratory acidosis
[2019-12-11] MEDS ORDERED: METOPROLOL TARTRATE 25 MG TAB PO STA (12:18)
[2019-12-11] MEDS ORDERED: DILTIAZEM DRIP BOLUS FROM BAG 1 MG SOLN IV ONE (13:19)
[2019-12-11] MEDS: DILTIAZEM 125 MG in SODIUM CHLORIDE 0.9% 100 ML IV SCH (14:00)
[2019-12-11] MEDS: HEPARIN SOD,PORK IN 0.45% NACL 25,000 UNIT in 0.45% NACL 1 250ML.BAG IV SCH (14:00)
--- NOTE | 2019-12-11 15:01 | P.PN ---
Subjective 79-year-old pleasant male came in with complaints of fever cough and brownish sputum production going on for about 3-4 days worsening shortness of breath there is no much air entry into bilateral lung benavides patient does have leukocytosis influenza A and B is negative patient does have pneumonic infiltrate on the chest to x-ray, which is showing mid left lower lobe infiltrate with some right-sided pleural effusion, I did review the x-ray which showed did show pleural effusion and there may be infiltrate in the right lower lobe as well. Patient is also being treated for COPD and was diagnosed with us sleep apnea recently and patient is on CPAP machine. Patient is not wheezing but there is not much air movement and bilateral lung benavides patient is complaining of generalized body aches. 12/09/2019 Patient is sitting up in the bed and appears to be in no acute distress. Patient is currently off of BiPAP and on 8 L high flow. Repeat chest x-ray today shows increasing pleural effusions moderate to large on the right and trace on the left and multifocal airspace disease likely atelectasis with volume overload. IV fluids will be titrated to 50 mL per hour and a one-time dose of IV Lasix will be given as the patient has not been having much urine output today. A Appiah catheter will also be placed to monitor I's and O's. Will re peat a.m. labs. 12/10/2019 Patient is sitting up in the chair and appears to be in no acute distress. Patient continues to be confused at times and is still requiring 8 L of high flow oxygen. Patient was on the BiPAP day before yesterday and did not like it and was being maintained on high flow oxygen via nasal cannula. Patient states that his breathing has not gotten much better since yesterday. Patient is currently on IV Lasix twice daily and will continue this time. Creatinine has trended down and is currently 1.68. D-dimer was positive yesterday at 2.36 and a VQ scan was done showing no pulmonary embolism. After speaking with nursing staff today patient continues to deteriorate and become more and more lethargic and not responding well to commands. Nursing staff stated that he was hallucinating last night. And a team was called as the patient was quite lethargic and unresponsive. Patient is currently being put back on the BiPAP at this time. Family is at the bedside. 12/11/2019 Patient is off BiPAP at this time patient is more awake patient is less lethargic but patient went into atrial fibrillation was given extra doses of May metoprolol with which there is no significant improvement in heart rate because of which patient was started on Cardizem drip. Patient is also on IV Lasix at this time, creatinine continue to improve with IV Lasix patient appears to be in heart failure exacerbation as well. Patient's serum creatinine is 1.47 BUN of 82 this can be from systemic steroids Constitutional: Patient still feels tired and sick Cardio vascular: denied any chest pain, palpitations Gastrointestinal denied any nausea vomiting Pulmonary: Denied any shortness of breath cough Neurologic denied any new focal deficits All inpatient medications were reviewed and appropriate changes in these medications as dictated in the interval history and assessment and plan. Objective - Vital Signs Vital signs: Vital Signs Temp 97.9 F 12/11/19 08:00 Pulse 122 H 12/11/19 14:05 Resp 20 12/11/19 14:05 BP 129/74 12/11/19 14:05 Pulse Ox 93 L 12/11/19 14:05 Intake & Output 12/10/19 12/11/19 12/11/19 18:59 06:59 18:59 Intake Total 220.919 240 245.126 Output Total 200 1280 725 Balance 20.919 -1040 -479.874 Weight 109 kg Intake: Intake, IV Titration 220.919 245.126 Amount Heparin Sod,Pork in 0.45% 220.919 245.126 NaCl 25,000 unit In 0.45 % NaCl 1 250ml.bag @ 9.2 UNITS/KG/HR 10.028 mls/hr IV .Q24H [facility] Rx#: [id number] Oral 240 Output: Urine 200 1280 725 Other: Voiding Method Indwelling Catheter Indwelling Catheter Indwelling Catheter - Exam GENERAL: The patient is alert and oriented x3, Obese. Till weak and less lethargy 30 ight. EOMI. No scleral icterus. No conjunctival pallor. Normocephalic, atraumatic. No pharyngeal erythema. No thyromegaly. CARDIOVASCULAR: S1 and S2 present. No murmurs, rubs, or gallops. PULMONARY He has mild expiratory wheezing and decreased air entry into bilateral lung benavides ABDOMEN: Soft, obese, nontender, nondistended, normoactive bowel sounds. No palpable organomegaly. MUSCULOSKELETAL: No joint swelling or deformity. EXTREMITIES: No cyanosis, clubbing, or pedal edema. NEUROLOGICAL: Gross neurological examination did not reveal any focal deficits. SKIN: No rashes. - Labs CBC & Chem 7: 12/11/19 06:04 12/11/19 06:04 Labs: Abnormal Lab Results - Last 24 Hours (Table) 12/10/19 12/10/19 12/11/19 Range/Units 15:06 15:31 06:04 WBC 13.5 H (3.8-10.6) k/uL RBC 3.94 L (4.30-5.90) m/uL Hgb 12.8 L (13.0-17.5) gm/dL Plt Count 144 L (150-450) k/uL APTT (22.0-30.0) sec ABG pH 7.21 L (7.35-7.45) ABG pCO2 75 H* (35-45) mmHg ABG pO2 82 L (83-108) mmHg ABG HCO3 30 H (21-25) mmol/L ABG Total CO2 32 H (19-24) mmol/L ABG O2 Saturation 93.4 L (94-97) % BUN (9-20) mg/dL Creatinine (0.66-1.25) mg/dL Glucose (74-99) mg/dL POC Glucose (mg/dL) 160 H (75-99) mg/dL 12/11/19 12/11/19 Range/Units 06:04 06:04 WBC (3.8-10.6) k/uL RBC (4.30-5.90) m/uL Hgb (13.0-17.5) gm/dL Plt Count (150-450) k/uL APTT 64.5 H (22.0-30.0) sec ABG pH (7.35-7.45) ABG pCO2 (35-45) mmHg ABG pO2 (83-108) mmHg ABG HCO3 (21-25) mmol/L ABG Total CO2 (19-24) mmol/L ABG O2 Saturation (94-97) % BUN 82 H (9-20) mg/dL Creatinine 1.47 H (0.66-1.25) mg/dL Glucose 142 H (74-99) mg/dL POC Glucose (mg/dL) (75-99) mg/dL Microbiology - Last 24 Hours (Table) 12/09/19 11:51 Gram Stain - Final Sputum Sputum Culture - Final Bettie albicans 12/08/19 16:22 Blood Culture - Preliminary Blood No Growth after 48 hours Assessment and Plan Plan: -Sepsis: Secondary to right lower lobe pneumonia along with left middle lobe pneumonia with a competent of COPD with acute exacerbation. Patient is on Rocephin and azithromycin which will be continued -Acute hypoxic as well as hypercapnic respiratory failure secondary to right lower lobe pneumonia along with the possible COPD exacerbation, patient may have restrictive lung disease from his obesity and sleep apnea. Patient 8 L of oxygen doesn't use any oxygen at home patient is on oral steroids. An IV Lasix patient has competent of CHF exacerbation as well, patient was severely hypoxic and hypercapnic improved with BiPAP at this time -Congestive heart failure chronic systolic as well as diastolic dysfunction with acute exacerbation continue with IV Lasix -Acute renal failure prerenal azotemia from heart failure exacerbation doing at this time with IV Lasix Lasix will be continued -Coronary artery disease recent cardiac catheterization which did not show any stent Cardiovascular disease -Benign prostatic hypertrophy consulted continue tamsulosin hyperlipidemia: Continue with statin -Obesity and sleep apnea continue with the CPAP at home settings -Atrial fibrillation with rapid ventricular rate continue with anti-coagulation patient was started on Cardizem cardiology will be evaluated the patient -Mild ischemic cardiomyopathy EF of 45% patient will be resumed on his home dose of Lasix does not appear to be in heart failure exacerbation at this time -Acute metabolic and toxic encephalopathy from severe leftward abnormalities and pneumonia 1 DVT prophylaxis with subcutaneous heparin and GI prophylaxis with the Pepcid
--- NOTE | 2019-12-11 16:32 | P.PN ---
Subjective Progress Note Date: 12/11/19 Principal diagnosis: Paroxysmal atrial fibrillation This is a 79-year-old gentleman with coronary artery disease and status post CABG, preserved left ventricular systolic function on recent echocardiogram, morbid obesity, hypertension, dyslipidemia, was admitted to the hospital with symptoms of weakness as well as generalized pain as well as fever. He was diagnosed with pneumonia. We initially seen the patient for cardiac arrhythmia where an EKG showed wide complex tachycardia with a differential diagnosis of atrial flutter versus sinus tachycardia. We signed off on the patient when requested to see the patient again because he went tachycardic earlier today. The EKG revealed what it seems to be atrial fibrillation with RVR. The blood pressure continues to be within normal limits. He is on heparin IV. He stated that he has been congested and he seems to be hypervolemic. He is on Lasix IV. I am going to start the patient on Cardizem IV. Continue heparin IV and switch the patient to oral anticoagulation down the line. Objective - Vital Signs Vital signs: Vital Signs Temp 97.9 F 12/11/19 08:00 Pulse 88 12/11/19 15:47 Resp 20 12/11/19 14:05 BP 129/74 12/11/19 14:05 Pulse Ox 93 L 12/11/19 14:05 Intake & Output 12/10/19 12/11/19 12/11/19 18:59 06:59 18:59 Intake Total 220.919 240 785.126 Output Total 200 1280 725 Balance 20.919 -1040 60.126 Weight 109 kg Intake: Intake, IV Titration 220.919 245.126 Amount Heparin Sod,Pork in 0.45% 220.919 245.126 NaCl 25,000 unit In 0.45 % NaCl 1 250ml.bag @ 9.2 UNITS/KG/HR 10.028 mls/hr IV .Q24H [facility] Rx#: [id number] Oral 240 540 Output: Urine 200 1280 725 Other: Voiding Method Indwelling Catheter Indwelling Catheter Indwelling Catheter - Constitutional General appearance: Present: no acute distress - Respiratory Respiratory: bilateral: diminished, rales - Cardiovascular Rhythm: irregularly irregular Heart sounds: normal: S1, S2 - Labs CBC & Chem 7: 12/11/19 06:04 12/11/19 06:04 Labs: Abnormal Lab Results - Last 24 Hours (Table) 12/11/19 12/11/19 12/11/19 Range/Units 06:04 06:04 06:04 WBC 13.5 H (3.8-10.6) k/uL RBC 3.94 L (4.30-5.90) m/uL Hgb 12.8 L (13.0-17.5) gm/dL Plt Count 144 L (150-450) k/uL APTT 64.5 H (22.0-30.0) sec BUN 82 H (9-20) mg/dL Creatinine 1.47 H (0.66-1.25) mg/dL Glucose 142 H (74-99) mg/dL Microbiology - Last 24 Hours (Table) 12/09/19 11:51 Gram Stain - Final Sputum Sputum Culture - Final Bettie albicans 12/08/19 16:22 Blood Culture - Preliminary Blood No Growth after 48 hours Assessment and Plan Assessment: Assessment #1 atrial fibrillation with RVR #2 congestive heart failure exacerbation secondary to diastolic dysfunction #3 coronary artery disease and status post CABG #4 multiple comorbid conditions Plan #1 start the patient on Cardizem IV #2 continue heparin IV and switched to oral anticoagulation #3 follow-up with the patient
[2019-12-11] MEDS ORDERED: LORazepam 2 MG/ML INJ IV PRN ×2 (16:58→22:00)
[2019-12-11] MEDS ORDERED: LORazepam 2 MG/ML INJ IV STA ×3 (16:58→21:01)
[2019-12-11 19:48] LABS: ABG Base Excess 7.2 mmol/L; ABG HCO3 32 mmol/L (21-25); ABG Oxygen Saturation 92.9 % (94-97); ABG PCO2 52 mmHg (35-45); ABG PO2 70 mmHg (83-108); ABG TCO2 34 mmol/L (19-24); Allen Test Performed? Yes
[2019-12-11] MEDS: FAMOTIDINE 20 MG TAB PO SCH (20:17)
[2019-12-11] MEDS: ATORVASTATIN 40 MG TAB PO SCH (20:17)
--- NOTE | 2019-12-11 22:08 | CT ---
EXAMINATION TYPE: CT brain wo con DATE OF EXAM: 12/11/2019 COMPARISON: None HISTORY: ams CT DLP: 1244.4 mGycm Automated exposure control for dose reduction was used. There is mild cerebral cortical atrophy. There is no mass effect nor midline shift. There is no sign of intracranial hemorrhage. Calvarium is intact. There is minimal hypodensity in the periventricular white matter. IMPRESSION: Minimal atrophy. No acute intracranial abnormality.
[2019-12-12] MEDS: DILTIAZEM 125 MG in SODIUM CHLORIDE 0.9% 100 ML IV SCH (00:38)
[2019-12-12] MEDS: IPRATROPIUM-ALBUTEROL 3 ML NEB INHALATION SCH ×4 (03:15→16:04)
[2019-12-12] MEDS ORDERED: LORazepam 2 MG/ML INJ IV STA (03:42)
[2019-12-12 05:14] LABS: HCT 41.3 % (39.0-53.0); HGB 13.5 gm/dL (13.0-17.5); MCH 32.2 pg (25.0-35.0); MCHC 32.6 g/dL (31.0-37.0); MCV 98.8 fL (80.0-100.0); Mean Platelet Volume 10.1; Platelet Count 184 k/uL (150-450); RBC 4.19 m/uL (4.30-5.90); RDW 14.2 % (11.5-15.5); WBC 11.3 k/uL (3.8-10.6)
[2019-12-12 05:30] LABS: D-Dimer 1.52 mg/L FEU (<0.60); Partial Thromboplastin Time 44.7 sec (22.0-30.0)
[2019-12-12] MEDS ORDERED: HALOPERIDOL LACTATE 5 MG/ML 1 ML VIAL IVP PRN (05:47)
[2019-12-12] MEDS: HEPARIN SOD,PORK IN 0.45% NACL 25,000 UNIT in 0.45% NACL 1 250ML.BAG IV SCH (06:01)
--- NOTE | 2019-12-12 06:01 | XR ---
EXAMINATION TYPE: XR chest 1V portable DATE OF EXAM: 12/12/2019 COMPARISON: 12/09/2019 HISTORY: Short of breath TECHNIQUE: FINDINGS: There is a moderately large right pleural effusion. There is pulmonary vascular congestion. Heart appears enlarged. There are sternal wires. IMPRESSION: Congestive heart failure with right pleural effusion. No significant change.
[2019-12-12] MEDS: FLUTICASONE 110 MCG INHALER INHALATION SCH (07:17)
[2019-12-12] MEDS: ASPIRIN 81 MG PO SCH (08:15)
[2019-12-12] MEDS: METOPROLOL TARTRATE 50 MG TAB PO SCH (08:15)
[2019-12-12] MEDS: TAMSULOSIN 0.4 MG CAP.ER.24H PO SCH (08:16)
[2019-12-12] MEDS: predniSONE 20 MG TAB PO SCH (08:16)
[2019-12-12] MEDS: AZITHROMYCIN 500 MG TAB PO SCH (08:16)
[2019-12-12] MEDS: FUROSEMIDE 10 MG/ML 4 ML VIAL IV SCH (08:16)
[2019-12-12] MEDS: EZETIMIBE 10 MG TAB PO SCH (08:22)
--- NOTE | 2019-12-12 10:48 | P.PN ---
Subjective Progress Note Date: 12/12/19 Principal diagnosis: This is a 79-year-old male is followed up because of acute kidney injury from a combination of pneumonia and congestive heart failure and outlet obstruction. He was doing better with less shortness of breath, but this morning he seems to be panting and respiratory rate in the high 30s to 40, on a BiPAP. Appetite is poor This morning is obtunded and restraints. He is febrile temperatures 100.8, blood pressures are 24-hour intake is recorded at 7 29 mL and output 3500 mL yesterday and over the last 3 hours he made 700 mL of urine Objective - Vital Signs Vital signs: Vital Signs Temp 100.8 F H 12/12/19 08:00 Pulse 143 H 12/12/19 08:00 Resp 26 H 12/12/19 08:00 BP 154/81 12/12/19 08:00 Pulse Ox 92 L 12/12/19 08:00 Intake & Output 12/11/19 12/12/19 12/12/19 18:59 06:59 18:59 Intake Total 785.126 266.157 Output Total 1425 1650 Balance -639.874 -1383.843 Weight 105.5 kg Intake: Intake, IV Titration 245.126 266.157 Amount Diltiazem 125 mg In 53.167 Sodium Chloride 0.9% 100 ml @ 5 MG/HR 5 mls/hr IV .Q24H [facility] Rx#:[id number] Heparin Sod,Pork in 0.45% 245.126 212.99 NaCl 25,000 unit In 0.45 % NaCl 1 250ml.bag @ 9.2 UNITS/KG/HR 10.028 mls/hr IV .Q24H [facility] Rx#: [id number] Oral 540 Output: Urine 1425 1650 Other: Voiding Method Indwelling Catheter Indwelling Catheter On examination obtunded and restraints and on BiPAP. HEENT exam no JVP, neck is supple no facial asymmetry. He is to Lungs are clear to auscultation. Fair air entry bilaterally Heart sounds are unremarkable for any murmur rub gallop Abdomen soft nontender nondistende protuberant Extreme exam was mild edema Neurologically as mentioned about - Labs CBC & Chem 7: 12/12/19 04:50 12/11/19 06:04 Labs: Abnormal Lab Results - Last 24 Hours (Table) 12/11/19 12/12/19 12/12/19 Range/Units 19:45 04:50 04:50 WBC 11.3 H (3.8-10.6) k/uL RBC 4.19 L (4.30-5.90) m/uL APTT 44.7 H (22.0-30.0) sec D-Dimer 1.52 H (<0.60) mg/L FEU ABG pCO2 52 H (35-45) mmHg ABG pO2 70 L (83-108) mmHg ABG HCO3 32 H (21-25) mmol/L ABG Total CO2 34 H (19-24) mmol/L ABG O2 Saturation 92.9 L (94-97) % Microbiology - Last 24 Hours (Table) 12/08/19 16:22 Blood Culture - Preliminary Blood No Growth after 72 hours 12/09/19 11:51 Gram Stain - Final Sputum Sputum Culture - Final Bettie albicans Assessment and Plan Assessment: Impression 1. Acute kidney injury secondary to combination of pneumonia, congestive heart failure and outlet obstruction. Has a Appiah catheter and creatinine is improved from a peak of 2.4 dated 12/08/2019 to 1.47 yesterday morning. Today's labs are pending Urine output is satisfactory 2. Congestive heart failure better, 3. Bilateral effusions, he has significant right pleural effusion more than left 4. Febrile and tachypneic - Likely septic Recommendation 1. Continue Lasix at 40 every 12. 2. Obtain blood gases. 3. Consider right pleural effusion. 4. Hopefully the improvement in congestive heart failure and bilateral effusions will improve his oxygenation as well as his ventilation and his respiratory acidosis
[2019-12-12] MEDS ORDERED: MORPHINE SULFATE 4 MG/ML SYRINGE IVP PRN ×2 (10:58→11:08)
--- NOTE | 2019-12-12 11:02 | P.PN ---
Subjective Progress Note Date: 12/12/19 This is a 79-year-old gentleman with coronary artery disease and status post CABG, preserved left ventricular systolic function on recent echocardiogram, morbid obesity, hypertension, dyslipidemia, was admitted to the hospital with symptoms of weakness as well as generalized pain as well as fever. He was diagnosed with pneumonia. We initially seen the patient for cardiac arrhythmia where an EKG showed wide complex tachycardia with a differential diagnosis of atrial flutter versus sinus tachycardia. We signed off on the patient when requested to see the patient again because he went tachycardic earlier today. The EKG revealed what it seems to be atrial fibrillation with RVR. The blood pressure continues to be within normal limits. He is on heparin IV. He stated that he has been congested and he seems to be hypervolemic. He is on Lasix IV. I am going to start the patient on Cardizem IV. Continue heparin IV and switch the patient to oral anticoagulation down the line. 12/12: Patient currently has a sitter at the bedside as he became quite combative during the night. He did receive a dose of Haldol this morning. The patient is on BiPAP and having labored breathing. Patient remains in atrial fibrillation was a 240 260 bpm. Patient did not receive his evening dose of Lopressor yesterday most likely due to mental status changes. This morning patient was able to take all of his medications. Repeat chest x-ray this morning reveals heart failure with moderately large right pleural effusion. No significant change. CAT scan of the brain done last evening showed minimal atrophy. No acute intracranial abnormality. Requested that Dr. Snowden be notified of the chest x-ray results with right-sided pleural effusion Gen: This is a 79-year-old male. He appears to be in some respiratory distress, patient is lethargic as he has received Haldol this morning. VS: Temperature 100.8, heart rate 95-143, respiratory rate 26-38, blood pressure 154/81, pulse ox 92% on 40% BiPAP HEENT: Head is atraumatic, normocephalic. Pupils equal, round. Sclerae is anicteric. Patient is now on BiPAP. Sitter is at the bedside. NECK: Supple. No JVD. No lymphadenopathy. No thyromegaly. LUNGS: Diminished with bilateral. Mild to moderate accessory muscle usage and intercostal retractions. HEART: Irregularly irregular rate and rhythm. No murmur. ABDOMEN: Soft. Obese Bowel sounds are present. No masses. No tenderness. EXTREMITIES: Minimal pedal edema. No calf tenderness. NEUROLOGICAL: Patient is unresponsive to verbal stimuli but has been oriented 2 for nurses. Assessment #1 atrial fibrillation with RVR #2 acute diastolic heart failure #3 coronary artery disease and status post CABG #4 multiple comorbid conditions: Acute kidney injury #5 bilateral effusions with significant right pleural effusion Plan #1 continue Cardizem IV, Lopressor 100 mg twice daily #2 continue heparin IV and switched to oral anticoagulation #3 continue Lasix 40 mg IV every 12 hours #4 I and O and daily weights, monitor electrolytes and renal function #5 follow-up with the patient Nurse practitioner note has been reviewed, I agree with documented findings and plan of care. Patient was seen and examined. Objective - Vital Signs Vital signs: Vital Signs Temp 100.8 F H 12/12/19 08:00 Pulse 143 H 12/12/19 08:00 Resp 26 H 12/12/19 08:00 BP 154/81 12/12/19 08:00 Pulse Ox 92 L 12/12/19 08:00 Intake & Output 12/11/19 12/12/19 12/12/19 18:59 06:59 18:59 Intake Total 785.126 266.157 Output Total 1425 1650 Balance -639.874 -1383.843 Weight 105.5 kg Intake: Intake, IV Titration 245.126 266.157 Amount Diltiazem 125 mg In 53.167 Sodium Chloride 0.9% 100 ml @ 5 MG/HR 5 mls/hr IV .Q24H [facility] Rx#:[id number] Heparin Sod,Pork in 0.45% 245.126 212.99 NaCl 25,000 unit In 0.45 % NaCl 1 250ml.bag @ 9.2 UNITS/KG/HR 10.028 mls/hr IV .Q24H [facility] Rx#: [id number] Oral 540 Output: Urine 1425 1650 Other: Voiding Method Indwelling Catheter Indwelling Catheter - Labs CBC & Chem 7: 12/12/19 04:50 12/11/19 06:04 Labs: Abnormal Lab Results - Last 24 Hours (Table) 12/11/19 12/12/19 12/12/19 Range/Units 19:45 04:50 04:50 WBC 11.3 H (3.8-10.6) k/uL RBC 4.19 L (4.30-5.90) m/uL APTT 44.7 H (22.0-30.0) sec D-Dimer 1.52 H (<0.60) mg/L FEU ABG pCO2 52 H (35-45) mmHg ABG pO2 70 L (83-108) mmHg ABG HCO3 32 H (21-25) mmol/L ABG Total CO2 34 H (19-24) mmol/L ABG O2 Saturation 92.9 L (94-97) % Microbiology - Last 24 Hours (Table) 12/08/19 16:22 Blood Culture - Preliminary Blood No Growth after 72 hours 12/09/19 11:51 Gram Stain - Final Sputum Sputum Culture - Final Bettie albicans
[2019-12-12 11:35] VITALS: BP 141/69; PULSE 91; RESP 48; TEMP 100.1
--- NOTE | 2019-12-12 12:07 | P.PN ---
Subjective 79-year-old pleasant male came in with complaints of fever cough and brownish sputum production going on for about 3-4 days worsening shortness of breath there is no much air entry into bilateral lung benavides patient does have leukocytosis influenza A and B is negative patient does have pneumonic infiltrate on the chest to x-ray, which is showing mid left lower lobe infiltrate with some right-sided pleural effusion, I did review the x-ray which showed did show pleural effusion and there may be infiltrate in the right lower lobe as well. Patient is also being treated for COPD and was diagnosed with us sleep apnea recently and patient is on CPAP machine. Patient is not wheezing but there is not much air movement and bilateral lung benavides patient is complaining of generalized body aches. 12/09/2019 Patient is sitting up in the bed and appears to be in no acute distress. Patient is currently off of BiPAP and on 8 L high flow. Repeat chest x-ray today shows increasing pleural effusions moderate to large on the right and trace on the left and multifocal airspace disease likely atelectasis with volume overload. IV fluids will be titrated to 50 mL per hour and a one-time dose of IV Lasix will be given as the patient has not been having much urine output today. A [place] catheter will also be placed to monitor I's and O's. Will re peat a.m. labs. 12/10/2019 Patient is sitting up in the chair and appears to be in no acute distress. Patient continues to be confused at times and is still requiring 8 L of high flow oxygen. Patient was on the BiPAP day before yesterday and did not like it and was being maintained on high flow oxygen via nasal cannula. Patient states that his breathing has not gotten much better since yesterday. Patient is currently on IV Lasix twice daily and will continue this time. Creatinine has trended down and is currently 1.68. D-dimer was positive yesterday at 2.36 and a VQ scan was done showing no pulmonary embolism. After speaking with nursing staff today patient continues to deteriorate and become more and more lethargic and not responding well to commands. Nursing staff stated that he was hallucinating last night. And a team was called as the patient was quite lethargic and unresponsive. Patient is currently being put back on the BiPAP at this time. Family is at the bedside. 12/11/2019 Patient is off BiPAP at this time patient is more awake patient is less lethargic but patient went into atrial fibrillation was given extra doses of May metoprolol with which there is no significant improvement in heart rate because of which patient was started on Cardizem drip. Patient is also on IV Lasix at this time, creatinine continue to improve with IV Lasix patient appears to be in heart failure exacerbation as well. Patient's serum creatinine is 1.47 BUN of 82 this can be from systemic steroids 12/12/2019 Patient's Respiratory rate in 40s patient need to be intubated I initially ordered an ABG but the discussed with the . Patient apparently has a severe back pain because of which patient has not been ablating well and had his quality of life is poor. Patient appears to have severe restrictive lung disease along with the severe pneumonia patient has not been improving in spite of aggressive therapy, patient is on BiPAP arousable but barely arousable. I discussed the options of intubation without resuscitation are comfort measures. Considering his poor qu ality of life to start with decided are not comfort measures only hospice will be consulted patient will be started on morphine and once his heart respiratory rate comes down we will switch his BiPAP to Venti mask or high flow nasal cannula oxygen Objective - Vital Signs Vital signs: Vital Signs Temp 100.1 F H 12/12/19 11:35 Pulse 91 12/12/19 11:35 Resp 48 H 12/12/19 11:35 BP 141/69 12/12/19 11:35 Pulse Ox 93 L 12/12/19 11:35 Intake & Output 12/11/19 12/12/19 12/12/19 18:59 06:59 18:59 Intake Total 785.126 266.157 Output Total 1425 1650 700 Balance -639.874 -1383.843 -700 Weight 105.5 kg Intake: Intake, IV Titration 245.126 266.157 Amount Diltiazem 125 mg In 53.167 Sodium Chloride 0.9% 100 ml @ 5 MG/HR 5 mls/hr IV .Q24H [facility] Rx#:[id number] Heparin Sod,Pork in 0.45% 245.126 212.99 NaCl 25,000 unit In 0.45 % NaCl 1 250ml.bag @ 9.2 UNITS/KG/HR 10.028 mls/hr IV .Q24H [facility] Rx#: [id number] Oral 540 Output: Urine 1425 1650 700 Other: Voiding Method Indwelling Catheter Indwelling Catheter Indwelling Catheter - Exam GENERAL: Barely arousable on BiPAP to Is in severe respiratory distress in spite of BiPAP ight. EOMI. No scleral icterus. No conjunctival pallor. Normocephalic, atraumatic. No pharyngeal erythema. No thyromegaly. CARDIOVASCULAR: S1 and S2 present. No murmurs, rubs, or gallops. PULMONARY He has mild expiratory wheezing and decreased air entry into bilateral lung benavides ABDOMEN: Soft, obese, nontender, nondistended, normoactive bowel sounds. No palpable organomegaly. MUSCULOSKELETAL: No joint swelling or deformity. EXTREMITIES: No cyanosis, clubbing, or pedal edema. NEUROLOGICAL: Unable to assess barely arousable with verbal stimuli and painful stimuli SKIN: No rashes. - Labs CBC & Chem 7: 12/12/19 04:50 12/11/19 06:04 Labs: Abnormal Lab Results - Last 24 Hours (Table) 12/11/19 12/12/19 12/12/19 Range/Units 19:45 04:50 04:50 WBC 11.3 H (3.8-10.6) k/uL RBC 4.19 L (4.30-5.90) m/uL APTT 44.7 H (22.0-30.0) sec D-Dimer 1.52 H (<0.60) mg/L FEU ABG pCO2 52 H (35-45) mmHg ABG pO2 70 L (83-108) mmHg ABG HCO3 32 H (21-25) mmol/L ABG Total CO2 34 H (19-24) mmol/L ABG O2 Saturation 92.9 L (94-97) % Microbiology - Last 24 Hours (Table) 12/08/19 16:22 Blood Culture - Preliminary Blood No Growth after 72 hours 12/09/19 11:51 Gram Stain - Final Sputum Sputum Culture - Final Bettie albicans Assessment and Plan Plan: -Sepsis: Secondary to right lower lobe pneumonia along with left middle lobe pneumonia with a competent of COPD with acute exacerbation. Patient is on Ro cephin and azithromycin -Acute hypoxic as well as hypercapnic respiratory failure secondary to right lower lobe pneumonia along with the possible COPD exacerbation, patient may have restrictive lung disease from his obesity and sleep apnea. Not doing well on BiPAP to Need intubation as mentioned above. Further plan as mentioned above -Congestive heart failure chronic systolic as well as diastolic dysfunction with acute exacerbation on IV Lasix -Acute renal failure prerenal azotemia from heart failure exacerbation improving but there is overall clinical worsening of his respiratory status -Coronary artery disease recent cardiac catheterization which did not show any stent Cardiovascular disease -Benign prostatic hypertrophy consulted continue tamsulosin hyperlipidemia: -Obesity and sleep apnea -Atrial fibrillation -Mild ischemic cardiomyopathy EF of 45% was in heart failure exacerbation and was on IV Lasix -Acute metabolic and toxic encephalopathy from her left leg abnormalities and toxic encephalopathy from pneumonia Plan is comfort measures hospice was consulted
--- NOTE | 2019-12-12 16:27 | P.PN ---
Subjective Progress Note Date: 12/10/19 Principal diagnosis: Left lower lobe pneumonia End-stage COPD Morbid obesity obstructive sleep apnea Altered mental status and lethargy due to hypercapnia and obstructive sleep apnea Sepsis 12/10/2019, patient seen and evaluated examined no respiratory distress present, patient on high flow oxygen 8 L, has been refusing BiPAP, patient did use the BiPAP with significant improvement but lately has one not been using it care plan discussed with the family at length and emphasize the importance to using BiPAP, patient intermittently hallucinating at night 12/09/2019, patient seen eval examined during the rounds patient currently on high flow oxygen resting comfortably, patient has been on BiPAP 07/09 with 40% oxygen throughout the night and this afternoon, mental status significantly improved, more awake and alert and less lethargic, labs reviewed medications reviewed Objective - Vital Signs Vital signs: Vital Signs Temp 98.8 F 12/10/19 15:31 Pulse 99 12/10/19 15:31 Resp 18 12/10/19 15:31 BP 148/78 12/10/19 15:31 Pulse Ox 97 12/10/19 15:31 Intake & Output 12/09/19 12/10/19 12/10/19 18:59 06:59 18:59 Intake Total 700 29.081 Output Total 1050 2450 Balance -350 -2420.919 Weight 104.7 kg Intake: Intake, IV Titration 700 29.081 Amount Heparin Sod,Pork in 0.45% 29.081 NaCl 25,000 unit In 0.45 % NaCl 1 250ml.bag @ 9.2 UNITS/KG/HR 10.028 mls/hr IV .Q24H [facility] Rx#: [id number] Sodium Chloride 0.9% 1, 700 000 ml @ 50 mls/hr IV . Q20H [facility] Rx#:[id number] Output: Urine 1000 2450 Straight 1500 Post Void Residual 50 Other: Voiding Method Indwelling Catheter Indwelling Catheter Indwelling Catheter # Voids 1 - Exam GENERAL: The patient is alert and oriented x3, lethargic Obese HEENT: Pupils are round and equally reacting to light. EOMI. No scleral icterus. No conjunctival pallor. Normocephalic, atraumatic. No pharyngeal erythema. No thyromegaly. CARDIOVASCULAR: S1 and S2 present. No murmurs, rubs, or gallops. PULMONARY: No significant air movement in the bilateral lung benavides minimal wheezing was appreciated no crackles were appreciated ABDOMEN: Soft, nontender, nondistended, normoactive bowel sounds. No palpable organomegaly. MUSCULOSKELETAL: No joint swelling or deformity. EXTREMITIES: No cyanosis, clubbing, or pedal edema. NEUROLOGICAL: Gross neurological examination did not reveal any focal deficits. SKIN: No rashes. - Labs CBC & Chem 7: 12/12/19 04:50 12/11/19 06:04 Labs: Abnormal Lab Results - Last 24 Hours (Table) 12/09/19 12/09/19 12/10/19 Range/Units 18:24 18:24 00:39 WBC 22.5 H (3.8-10.6) k/uL RBC 4.28 L (4.30-5.90) m/uL Plt Count (150-450) k/uL Neutrophils # 21.5 H (1.3-7.7) k/uL Lymphocytes # 0.0 L (1.0-4.8) k/uL Basophils # 0.3 H (0-0.2) k/uL APTT 48.4 H (22.0-30.0) sec D-Dimer 2.36 H (<0.60) mg/L FEU ABG pH (7.35-7.45) ABG pCO2 (35-45) mmHg ABG pO2 (83-108) mmHg ABG HCO3 (21-25) mmol/L ABG Total CO2 (19-24) mmol/L ABG O2 Saturation (94-97) % BUN (9-20) mg/dL Creatinine (0.66-1.25) mg/dL Glucose (74-99) mg/dL POC Glucose (mg/dL) (75-99) mg/dL 12/10/19 12/10/19 12/10/19 Range/Units 05:58 05:58 15:06 WBC 19.9 H (3.8-10.6) k/uL RBC 4.07 L (4.30-5.90) m/uL Plt Count 142 L (150-450) k/uL Neutrophils # 18.9 H (1.3-7.7) k/uL Lymphocytes # 0.3 L (1.0-4.8) k/uL Basophils # (0-0.2) k/uL APTT (22.0-30.0) sec D-Dimer (<0.60) mg/L FEU ABG pH (7.35-7.45) ABG pCO2 (35-45) mmHg ABG pO2 (83-108) mmHg ABG HCO3 (21-25) mmol/L ABG Total CO2 (19-24) mmol/L ABG O2 Saturation (94-97) % BUN 78 H (9-20) mg/dL Creatinine 1.68 H (0.66-1.25) mg/dL Glucose 146 H (74-99) mg/dL POC Glucose (mg/dL) 160 H (75-99) mg/dL 12/10/19 Range/Units 15:31 WBC (3.8-10.6) k/uL RBC (4.30-5.90) m/uL Plt Count (150-450) k/uL Neutrophils # (1.3-7.7) k/uL Lymphocytes # (1.0-4.8) k/uL Basophils # (0-0.2) k/uL APTT (22.0-30.0) sec D-Dimer (<0.60) mg/L FEU ABG pH 7.21 L (7.35-7.45) ABG pCO2 75 H* (35-45) mmHg ABG pO2 82 L (83-108) mmHg ABG HCO3 30 H (21-25) mmol/L ABG Total CO2 32 H (19-24) mmol/L ABG O2 Saturation 93.4 L (94-97) % BUN (9-20) mg/dL Creatinine (0.66-1.25) mg/dL Glucose (74-99) mg/dL POC Glucose (mg/dL) (75-99) mg/dL Microbiology - Last 24 Hours (Table) 12/09/19 11:51 Gram Stain - Preliminary Sputum 12/08/19 16:22 Blood Culture - Preliminary Blood No Growth after 24 hours Assessment and Plan Assessment: Left lower lobe pneumonia End-stage COPD Morbid obesity obstructive sleep apnea Altered mental status and lethargy due to hypercapnia and obstructive sleep apnea Sepsis Plan: Continue supplemental oxygen Continue BiPAP however patient has been refusing it there is a high risk of complication not using the BiPAP which includes slow development of hypercapnia and respiratory failure I have discussed with these concerns with the and family Continue oxygen tapered down Continue bronchodilators and antibiotics Follow clinical course closely further recommendations pending plan of care as p er clinical response of the patient Time with Patient: Greater than 30
--- NOTE | 2019-12-12 16:29 | P.PN ---
Subjective Progress Note Date: 12/12/19 Principal diagnosis: Left lower lobe pneumonia End-stage COPD Morbid obesity obstructive sleep apnea Altered mental status and lethargy due to hypercapnia and obstructive sleep apnea Sepsis 12/12/2019, patient seen eval examined during rounds, patient continued to refuse the BiPAP eventually he is being kept on nasal cannula he is lethargic poorly responsive family decided for comfort measures only respiratory rate remains elevated, however modify and appears to be helping in terms of respiratory status will be available as needed her eyes 12/10/2019, patient seen and evaluated examined no respiratory distress present, patient on high flow oxygen 8 L, has been refusing BiPAP, patient did use the BiPAP with significant improvement but lately has one not been using it care plan discussed with the family at length and emphasize the importance to using BiPAP, patient intermittently hallucinating at night 12/09/2019, patient seen eval examined during the rounds patient currently on high flow oxygen resting comfortably, patient has been on BiPAP 15/10 with 40% oxygen throughout the night and this afternoon, mental status significantly improved, more awake and alert and less lethargic, labs reviewed medications reviewed Objective - Vital Signs Vital signs: Vital Signs Temp 100.1 F H 12/12/19 11:35 Pulse 91 12/12/19 11:35 Resp 48 H 12/12/19 11:35 BP 141/69 12/12/19 11:35 Pulse Ox 93 L 12/12/19 11:35 Intake & Output 12/11/19 12/12/19 12/12/19 18:59 06:59 18:59 Intake Total 785.126 266.157 Output Total 1425 1650 700 Balance -639.874 -1383.843 -700 Weight 105.5 kg Intake: Intake, IV Titration 245.126 266.157 Amount Diltiazem 125 mg In 53.167 Sodium Chloride 0.9% 100 ml @ 5 MG/HR 5 mls/hr IV .Q24H [facility] Rx#:[id number] Heparin Sod,Pork in 0.45% 245.126 212.99 NaCl 25,000 unit In 0.45 % NaCl 1 250ml.bag @ 9.2 UNITS/KG/HR 10.028 mls/hr IV .Q24H [facility] Rx#: [id number] Oral 540 Output: Urine 1425 1650 700 Other: Voiding Method Indwelling Catheter Indwelling Catheter Indwelling Catheter - Exam GENERAL: The patient is alert and oriented x3, lethargic Obese HEENT: Pupils are round and equally reacting to light. EOMI. No scleral icterus. No conjunctival pallor. Normocephalic, atraumatic. No pharyngeal erythema. No thyromegaly. CARDIOVASCULAR: S1 and S2 present. No murmurs, rubs, or gallops. PULMONARY: No significant air movement in the bilateral lung benavides minimal wheezing was appreciated no crackles were appreciated ABDOMEN: Soft, nontender, nondistended, normoactive bowel sounds. No palpable o rganomegaly. MUSCULOSKELETAL: No joint swelling or deformity. EXTREMITIES: No cyanosis, clubbing, or pedal edema. NEUROLOGICAL: Gross neurological examination did not reveal any focal deficits. SKIN: No rashes. - Labs CBC & Chem 7: 12/12/19 04:50 12/11/19 06:04 Labs: Abnormal Lab Results - Last 24 Hours (Table) 12/11/19 12/12/19 12/12/19 Range/Units 19:45 04:50 04:50 WBC 11.3 H (3.8-10.6) k/uL RBC 4.19 L (4.30-5.90) m/uL APTT 44.7 H (22.0-30.0) sec D-Dimer 1.52 H (<0.60) mg/L FEU ABG pCO2 52 H (35-45) mmHg ABG pO2 70 L (83-108) mmHg ABG HCO3 32 H (21-25) mmol/L ABG Total CO2 34 H (19-24) mmol/L ABG O2 Saturation 92.9 L (94-97) % Microbiology - Last 24 Hours (Table) 12/08/19 16:22 Blood Culture - Preliminary Blood No Growth after 72 hours Assessment and Plan Assessment: Left lower lobe pneumonia End-stage COPD Morbid obesity obstructive sleep apnea Altered mental status and lethargy due to hypercapnia and obstructive sleep apnea Sepsis Family elected for comfort care measures Plan: Continue supplemental oxygen Continue comfort care measures as per protocol, currently available as needed her eyes Time with Patient: Greater than 30
--- NOTE | 2019-12-13 09:25 | P.DS ---
Providers Date of admission: 12/07/19 21:55 Expected date of discharge: 12/12/19 Attending physician: Aleisha Hannon Consults: 12/07/19 22:54 Consult Physician Routine Consulting Provider: Collin Rainey Consult Reason/Comments: PNA Do you want consulting provider notified?: Yes 12/08/19 01:12 Consult Physician Routine Consulting Provider: Kirk Gamboa Consult Reason/Comments: CHF v PNA Do you want consulting provider notified?: Yes, Notify in am 12/08/19 14:42 Consult Physician Routine Consulting Provider: [employer] Consult Reason/Comments: james Do you want consulting provider notified?: Yes 12/11/19 12:45 Consult Physician Routine Consulting Provider: Kirk Gamboa Consult Reason/Comments: Heart failure, A-fib Do you want consulting provider notified?: Yes Primary care physician: Stated None Hospital Course: Had a lengthy discussion with the family again later in the day. Considering baseline poor functionality and non improvement with aggressive management of his pneumonia, resp failure and CHF family decided on comfort care and Hospice. Patient was started on comfort meds and rest of the medications were discontinued. Patient subsequently later that night. Refer to Nursing documentation for further details. Plan - Discharge Summary Discharge Rx Participant: No New Discharge Prescriptions: No Action Tiotropium [place] [Spiriva] 1 cap INHALATION DAILY Naproxen [Naprosyn] 500 mg PO DAILY Aspirin 162 mg PO DAILY Tamsulosin [Flomax] 0.4 mg PO DAILY Cetirizine HCl [Zyrtec] 10 mg PO DAILY Allopurinol [Zyloprim] 300 mg PO HS HYDROcodone/APAP 10-325MG [[place] 10-325] 1 tab PO QID PRN PRN Reason: Pain Montelukast [Singulair] 10 mg PO HS Atorvastatin [Lipitor] 40 mg PO DAILY Ezetimibe [Zetia] 10 mg PO DAILY Beclomethasone Dip 80 Mcg/Puff [Qvar 80 mcg] 1 puff INHALATION RT-BID Albuterol Sulfate [Proair Hfa] 2 puff INHALATION RT-Q4H PRN PRN Reason: Shortness Of Breath Potassium Chloride ER [K-Dur 10] 10 meq PO DAILY Artificial Tears-Hypromellose [Artificial Tear Drops] 1 drop BOTH EYES DAILY PRN PRN Reason: Dry Eye(S) Metoprolol Tartrate [Lopressor] 25 mg PO BID Torsemide [Demadex] 20 mg PO DAILY Clopidogrel [Plavix] 75 mg PO DAILY Discharge Medication List Allopurinol [Zyloprim] 300 mg PO HS 06/17/17 [History] Aspirin 162 mg PO DAILY 06/17/17 [History] Cetirizine HCl [Zyrtec] 10 mg PO DAILY 06/17/17 [History] HYDROcodone/APAP 10-325MG [[place] 10-325] 1 tab PO QID PRN 06/17/17 [History] Naproxen [Naprosyn] 500 mg PO DAILY 06/17/17 [History] Tamsulosin [Flomax] 0.4 mg PO DAILY 06/17/17 [History] Tiotropium [place] [Spiriva] 1 cap INHALATION DAILY 06/17/17 [History] Atorvastatin [Lipitor] 40 mg PO DAILY 09/21/19 [History] Montelukast [Singulair] 10 mg PO HS 09/21/19 [History] Beclomethasone Dip 80 Mcg/Puff [Qvar 80 mcg] 1 puff INHALATION RT-BID 11/09/19 [History] Ezetimibe [Zetia] 10 mg PO DAILY 11/09/19 [History] Albuterol Sulfate [Proair Hfa] 2 puff INHALATION RT-Q4H PRN 12/07/19 [History] Artificial Tears-Hypromellose [Artificial Tear Drops] 1 drop BOTH EYES DAILY PRN 12/07/19 [History] Metoprolol Tartrate [Lopressor] 25 mg PO BID 12/07/19 [History] Potassium Chloride ER [K-Dur 10] 10 meq PO DAILY 12/07/19 [History] Torsemide [Demadex] 20 mg PO DAILY 12/07/19 [History] Clopidogrel [Plavix] 75 mg PO DAILY 12/08/19 [History] Follow up Appointment(s)/Referral(s): [facility] [NON-STAFF] - Discharge Disposition: DC/TRNS IP HOSP W/PLND IP READ - Preliminary Cause of Preliminary Cause of : Pneumonia
== END 2019-12-12 16:18 | disposition hospice, inpatient (51) | DRG 871 ==
LOC: 3SCARD 21:55
PROVIDERS: ADMIT Internal Medicine; ATTEND Internal Medicine
PROC: 5A09357 Assistance with Respiratory Ventilation, Less than 24 Consecutive Hours, Continuous Positive Airway Pressure (ICD-10-PCS; principal; 2019-12-08)
DX: A41.9 Sepsis, unspecified organism (principal); I50.33 Acute on chronic diastolic (congestive) heart failure; J18.9 Pneumonia, unspecified organism; N17.0 Acute kidney failure with tubular necrosis; J96.22 Acute and chronic respiratory failure with hypercapnia; G92 Toxic encephalopathy; E87.2 Acidosis; I13.0 Hypertensive heart and chronic kidney disease with heart failure and stage 1 through stage 4 chronic kidney disease, or unspecified chronic kidney disease; J44.0 Chronic obstructive pulmonary disease with (acute) lower respiratory infection; J44.1 Chronic obstructive pulmonary disease with (acute) exacerbation; R44.3 Hallucinations, unspecified; J98.11 Atelectasis; Z68.41 Body mass index [BMI] 40.0-44.9, adult; Z51.5 Encounter for palliative care; Z66 Do not resuscitate; R65.20 Severe sepsis without septic shock; N18.3 Chronic kidney disease, stage 3 (moderate); E03.9 Hypothyroidism, unspecified; E66.01 Morbid (severe) obesity due to excess calories; E78.5 Hyperlipidemia, unspecified; E87.5 Hyperkalemia; G47.33 Obstructive sleep apnea (adult) (pediatric); I25.10 Atherosclerotic heart disease of native coronary artery without angina pectoris; I25.5 Ischemic cardiomyopathy; I48.0 Paroxysmal atrial fibrillation; J98.4 Other disorders of lung; N40.1 Benign prostatic hyperplasia with lower urinary tract symptoms; R33.8 Other retention of urine; G89.29 Other chronic pain; M10.9 Gout, unspecified; M19.90 Unspecified osteoarthritis, unspecified site; M54.9 Dorsalgia, unspecified; Z79.02 Long term (current) use of antithrombotics/antiplatelets; Z79.82 Long term (current) use of aspirin; Z79.899 Other long term (current) drug therapy; Z85.828 Personal history of other malignant neoplasm of skin; Z87.891 Personal history of nicotine dependence; Z95.1 Presence of aortocoronary bypass graft; Z95.2 Presence of prosthetic heart valve; Z96.651 Presence of right artificial knee joint; Z90.49 Acquired absence of other specified parts of digestive tract; Z98.41 Cataract extraction status, right eye; Z96.1 Presence of intraocular lens; Z80.8 Family history of malignant neoplasm of other organs or systems; Z82.49 Family history of ischemic heart disease and other diseases of the circulatory system
CPT/HCPCS: 36600; 70450; 71045; 71046; 78580; 80048; 82805; 83605; 83880; 85025; 85027; 85379; 85610; 85730; 87040; 87070; 87205; 94640; 94660; 94760

== ENCOUNTER 2019-12-12 16:09 | Inpatient (IN) | payer MEDICAID ==
[2019-12-12] MEDS ORDERED: ONDANSETRON 4 MG/2 ML VIAL IVP PRN (16:12)
[2019-12-12] MEDS ORDERED: ACETAMINOPHEN SUPPOSITORY 650 MG SUPP RECTAL PRN (16:12)
[2019-12-12] MEDS ORDERED: ATROPINE OPHTH SOLN 1% 5ML BTL SUBLINGUAL PRN (16:12)
[2019-12-12] MEDS ORDERED: LORazepam 2 MG/ML INJ IV PRN (16:12)
[2019-12-12] MEDS ORDERED: MORPHINE SULFATE (100 MG/2 ML) 100 MG in SODIUM CHLORIDE 0.9% 100 ML IV SCH (16:30)
[2019-12-12 23:06] VITALS: PULSE 123; RESP 29
--- NOTE | 2019-12-13 09:26 | P.HPIM ---
History of Present Illness Refer to the PN from same day with a different FIN number Past Medical History Past Medical History: Coronary Artery Disease (CAD), Cancer, COPD, Hyperlipidemia, Hypertension, Musculoskeletal Disorder, Osteoarthritis (OA) Additional Past Medical History / Comment(s): Hx. of Gout. See Dr. Gamboa's H&P. Skin cancer. Hx. of Hydrocele., chronic back pain with calcium deposits, bypass in april 2012 History of Any Multi-Drug Resistant Organisms: None Reported Past Surgical History: Cholecystectomy, Coronary Bypass/CABG, Heart Catheterization, Joint Replacement, Orthopedic Surgery Additional Past Surgical History / Comment(s): R knee replacement, shoulder surgery, spinal cyst removed, pins in L middle finger.,COLONOSCOPY, RT CATARACT REMOVED, heart valve replacement Past Anesthesia/Blood Transfusion Reactions: No Reported Reaction Past Psychological History: No Psychological Hx Reported Smoking Status: Former smoker Past Alcohol Use History: None Reported Additional Past Alcohol Use History / Comment(s): Quit smoking in 1997. 3ppd smoker Past Drug Use History: None Reported - Past Family History Mother Family Medical History: Cancer, Deep Vein Thrombosis (DVT) Additional Family Medical History / Comment(s): Skin cancer. Medications and Allergies Home Medications Medication Instructions Recorded Confirmed Type Allopurinol [Zyloprim] 300 mg PO HS 06/17/17 12/12/19 History Aspirin 162 mg PO DAILY 06/17/17 12/12/19 History Cetirizine HCl [Zyrtec] 10 mg PO DAILY 06/17/17 12/12/19 History HYDROcodone/APAP 10-325MG [[place] 1 tab PO QID PRN 06/17/17 12/12/19 History 10-325] Naproxen [Naprosyn] 500 mg PO DAILY 06/17/17 12/12/19 History Tamsulosin [Flomax] 0.4 mg PO DAILY 06/17/17 12/12/19 History Tiotropium [place] [Spiriva] 1 cap INHALATION DAILY 06/17/17 12/12/19 History Atorvastatin [Lipitor] 40 mg PO DAILY 09/21/19 12/12/19 History Montelukast [Singulair] 10 mg PO HS 09/21/19 12/12/19 History Beclomethasone Dip 80 Mcg/Puff 1 puff INHALATION RT-BID 11/09/19 12/12/19 History [Qvar 80 mcg] Ezetimibe [Zetia] 10 mg PO DAILY 11/09/19 12/12/19 History Albuterol Sulfate [Proair Hfa] 2 puff INHALATION RT-Q4H PRN 12/07/19 12/12/19 History Artificial Tears-Hypromellose 1 drop BOTH EYES DAILY PRN 12/07/19 12/12/19 History [Artificial Tear Drops] Metoprolol Tartrate [Lopressor] 25 mg PO BID 12/07/19 12/12/19 History Potassium Chloride ER [K-Dur 10] 10 meq PO DAILY 12/07/19 12/12/19 History Torsemide [Demadex] 20 mg PO DAILY 12/07/19 12/12/19 History Clopidogrel [Plavix] 75 mg PO DAILY 12/08/19 12/12/19 History Allergies Allergy/AdvReac Type Severity Reaction Status Date / Time No Known Allergies Allergy Verified 12/07/19 22:58 Physical Exam Vitals: Vital Signs Pulse Resp Pulse Ox 12/12/19 23:29 123 H 29 H 12/12/19 23:06 123 H 29 H 91 L 12/12/19 22:10 28 H 12/12/19 20:00 113 H 18 92 L Intake and Output 12/12/19 12/13/19 12/13/19 22:59 06:59 14:59 Intake Total 7.327 Output Total 700 Balance -692.673 Intake: Intake, IV Titration 7.327 Amount Morphine Sulfate (100 mg/ 7.327 2 ml) 100 mg In Sodium Chloride 0.9% 100 ml @ 1 MG/HR 1.02 mls/hr IV . Q24H [facility] Rx#:[id number] Output: Urine 700 Other: Voiding Method Indwelling Catheter Indwelling Catheter Weight 105.5 kg
--- NOTE | 2019-12-13 09:28 | P.DS ---
Providers Date of admission: 12/12/19 16:23 Attending physician: Jc Truong Primary care physician: [place] [place] [facility] Course: refer to the D/C from same day and different FIN number Plan - Discharge Summary New Discharge Prescriptions: No Action Tiotropium [place] [Spiriva] 1 cap INHALATION DAILY Naproxen [Naprosyn] 500 mg PO DAILY Aspirin 162 mg PO DAILY Tamsulosin [Flomax] 0.4 mg PO DAILY Cetirizine HCl [Zyrtec] 10 mg PO DAILY Allopurinol [Zyloprim] 300 mg PO HS HYDROcodone/APAP 10-325MG [[place] 10-325] 1 tab PO QID PRN PRN Reason: Pain Montelukast [Singulair] 10 mg PO HS Atorvastatin [Lipitor] 40 mg PO DAILY Ezetimibe [Zetia] 10 mg PO DAILY Beclomethasone Dip 80 Mcg/Puff [Qvar 80 mcg] 1 puff INHALATION RT-BID Albuterol Sulfate [Proair Hfa] 2 puff INHALATION RT-Q4H PRN PRN Reason: Shortness Of Breath Potassium Chloride ER [K-Dur 10] 10 meq PO DAILY Artificial Tears-Hypromellose [Artificial Tear Drops] 1 drop BOTH EYES DAILY PRN PRN Reason: Dry Eye(S) Metoprolol Tartrate [Lopressor] 25 mg PO BID Torsemide [Demadex] 20 mg PO DAILY Clopidogrel [Plavix] 75 mg PO DAILY Discharge Medication List Allopurinol [Zyloprim] 300 mg PO HS 06/17/17 [History] Aspirin 162 mg PO DAILY 06/17/17 [History] Cetirizine HCl [Zyrtec] 10 mg PO DAILY 06/17/17 [History] HYDROcodone/APAP 10-325MG [[place] 10-325] 1 tab PO QID PRN 06/17/17 [History] Naproxen [Naprosyn] 500 mg PO DAILY 06/17/17 [History] Tamsulosin [Flomax] 0.4 mg PO DAILY 06/17/17 [History] Tiotropium [place] [Spiriva] 1 cap INHALATION DAILY 06/17/17 [History] Atorvastatin [Lipitor] 40 mg PO DAILY 09/21/19 [History] Montelukast [Singulair] 10 mg PO HS 09/21/19 [History] Beclomethasone Dip 80 Mcg/Puff [Qvar 80 mcg] 1 puff INHALATION RT-BID 11/09/19 [History] Ezetimibe [Zetia] 10 mg PO DAILY 11/09/19 [History] Albuterol Sulfate [Proair Hfa] 2 puff INHALATION RT-Q4H PRN 12/07/19 [History] Artificial Tears-Hypromellose [Artificial Tear Drops] 1 drop BOTH EYES DAILY PRN 12/07/19 [History] Metoprolol Tartrate [Lopressor] 25 mg PO BID 12/07/19 [History] Potassium Chloride ER [K-Dur 10] 10 meq PO DAILY 12/07/19 [History] Torsemide [Demadex] 20 mg PO DAILY 12/07/19 [History] Clopidogrel [Plavix] 75 mg PO DAILY 12/08/19 [History] Discharge Disposition: - Preliminary Cause of Preliminary Cause of : Pnuemonia
== END 2019-12-13 05:12 | disposition expired | DRG 951 ==
LOC: 3SCARD 16:23
PROVIDERS: ADMIT Internal Medicine; ATTEND Internal Medicine
DX: Z51.5 Encounter for palliative care (principal); J18.9 Pneumonia, unspecified organism; J44.0 Chronic obstructive pulmonary disease with (acute) lower respiratory infection; Z87.891 Personal history of nicotine dependence; Z66 Do not resuscitate; E78.5 Hyperlipidemia, unspecified; I10 Essential (primary) hypertension; I25.10 Atherosclerotic heart disease of native coronary artery without angina pectoris; Z79.02 Long term (current) use of antithrombotics/antiplatelets; Z79.82 Long term (current) use of aspirin; Z79.899 Other long term (current) drug therapy; Z80.8 Family history of malignant neoplasm of other organs or systems; Z83.2 Family history of diseases of the blood and blood-forming organs and certain disorders involving the immune mechanism; Z85.828 Personal history of other malignant neoplasm of skin; Z95.1 Presence of aortocoronary bypass graft; Z95.2 Presence of prosthetic heart valve; Z96.651 Presence of right artificial knee joint; M10.9 Gout, unspecified; Z98.41 Cataract extraction status, right eye; M19.90 Unspecified osteoarthritis, unspecified site; M54.9 Dorsalgia, unspecified; G89.29 Other chronic pain